=== PATIENT | female | born 1960 | race Caucasian/White ===

== ENCOUNTER 2016-11-13 20:46 | Emergency (ER) | payer OTHER ==
[~2016-11-13] VITALS: Ht 154.9 cm; Wt 95.0 kg
[~2016-11-13 20:46] MED LIST: FLUT16SP24 NASAL; IBUP-1542 PO; LORA-441 PO; LORA10TA3 PO; OMEP20CA9 PO; PATA BOTH EYES
[2016-11-13 20:48] VITALS: Ht 154.9 cm; Wt 95.0 kg
--- NOTE | 2016-11-13 21:45 | ERD ---
ER Documentation Chief Complaint Date/Time DATE: 11/13/16 TIME: 21:38 Chief Complaint PAINS SURROUNDING THE RIGHT EYE AND AND REDNESS 3 DAYS HPI 56-year-old female presents here in emergency department for complaints of pain surrounding the right eye and redness for the last 3 days. Patient described the pain as throbbing pain, 6/10 scale, is worse upon touching the area. Patient denies any eye discharge. Patient denies any pain inside her eyes. Patient denies any redness and eye. Patient denies any trauma in the eye. ROS All systems reviewed and are negative except as per history of present illness. Medications Home Meds Active Scripts Acetaminophen* (Tylophen*) 500 Mg Capsule, 1 CAP PO Q6H Y for PAIN AND OR ELEVATED TEMP, #20 CAP Prov:ROJAS CALDERON FORM TAMPING MACHINE OPERATOR 11/13/16 Clindamycin Hcl* (Clindamycin Hcl*) 300 Mg Capsule, 300 MG PO TID for 10 Days, CAP Prov:ROJAS CALDERON NP 11/13/16 Ibuprofen* (Motrin*) 600 Mg Tab, 600 MG PO Q6H Y for PAIN AND OR ELEVATED TEMP, #30 TAB Prov:JAXSON RECINOSC 11/04/16 Ibuprofen* (Motrin*) 600 Mg Tab, 600 MG PO Q8 for 10 Days, #30 TAB 0 Refills Prov:JOSE ALBERTO CANSECO PA-C 06/30/16 Loratadine* (Loratadine*) 10 Mg Tablet, 10 MG PO DAILY, #14 TAB Prov:TEMITOPE PACHECO DO 06/25/16 Olopatadine* (Patanol* Ophth) 0.1% - 5 Ml Drops, 1 DROP BOTH EYES BID, #1 EA Prov:TEMITOPE PACHECO DO 06/25/16 Omeprazole* (Prilosec*) 20 Mg Capsule.dr, 20 MG PO DAILY for 30 Days, CAP Prov:VICENTE HOLLIS MD 03/26/16 Lorazepam* (Ativan*) 0.5 Mg Tablet, 0.5 MG PO Q8H Y for ANXIETY, #10 TAB Prov:DECLAN ORONA DO 10/31/15 Fluticasone Propionate* (Flonase* Nasal) 50 Mcg/[place] - 16 Gm [place].susp, 1 SPRAY NASAL DAILY, #1 BOTTLE Prov:NGUYỄN HO 06/13/15 Loratadine* (Loratadine*) 10 Mg Tablet, 10 MG PO DAILY for 30 Days, TAB Prov:NGUYỄN HO 06/13/15 Allergies Allergies: Coded Allergies: No Known Allergy (Unverified , 11/04/16) PMhx/Soc History of Surgery: No Anesthesia Reaction: No Hx Neurological Disorder: No Hx Respiratory Disorders: No Hx Cardiac Disorders: Yes (HTN ) Hx Psychiatric Problems: No Hx Miscellaneous Medical Probl: Yes (iddm) Hx Alcohol Use: No Hx Substance Use: No Hx Tobacco Use: No Smoking Status: Never smoker FmHx Family History: No coronary disease, No diabetes, No other Physical Exam Vitals Vital Signs Date Time Temp Pulse Resp B/P Pulse Ox O2 Delivery O2 Flow Rate FiO2 11/13/16 20:48 98.5 78 18 138/73 100 Physical Exam GENERAL: The patient is well developed and appropriate for usual state of health, in no apparent distress. HEENT: Atraumatic. Eyes are PERRL EOM intact. Tenderness on palpation just below the right eye periorbital area. Ears: Normal tympanic membrane, no erythema or bulging. No ear canal swelling. No ear discharge. Nose: normal nasal turbinates, no erythema or swelling. Normal nasal discharge. Throat: oropharynx clear. No tonsillar swelling or tonsillar exudates. No lymphadenopathy. CHEST: Clear to auscultation bilaterally. There are no rales, wheezes or rhonchi. HEART: Regular rate and rhythm. No murmurs, clicks, rubs or gallops. No S3 or S4. ABDOMEN: Soft, nontender and nondistended. Good bowel sounds. No rebound or guarding. No gross peritonitis. No gross organomegaly or masses. No Mccann sign or McBurney point tenderness. BACK: No midline or flank tenderness. EXTREMITIES: Equal pulses bilaterally. There is no peripheral clubbing, cyanosis or edema. No focal swelling or erythema. Full range of motion. Grossly neurovascularly intact. NEURO: Alert and oriented. Cranial nerves 2-12 intact. Motor strength in all 4 extremities with 5/5 strength. Sensation grossly intact. Normal speech and gait. SKIN: There is no apparent rash or petechia. The skin is warm and dry. HEMATOLOGIC AND LYMPHATIC: There is no evidence of excessive bruising or lymphedema. No gross cervical, axillary, or inguinal lymphadenopathy. Result Diagram: 11/13/16214711/13/162147 Results 24 hrs Laboratory Tests Test 11/13/16 21:48 Alanine Aminotransferase (ALT/SGPT) 21IU/L Albumin 4.4g/dl Albumin/Globulin Ratio 1.25 Alkaline Phosphatase 78IU/L Anion Gap 18 Aspartate Amino Transf (AST/SGOT) 30IU/L Basophils # 0.010^3/ul Basophils % 0.5% Blood Morphology Comment Blood Urea Nitrogen 10mg/dl Calcium Level 9.3mg/dl Carbon Dioxide Level 25mmol/L Chloride Level 103mmol/L Creatinine 0.72mg/dl Direct Bilirubin 0.00mg/dl Eosinophils # 0.110^3/ul Eosinophils % 2.0% Globulin 3.50g/dl Glucose Level 126mg/dl Hematocrit 33.5% Hemoglobin 10.6g/dl Indirect Bilirubin 0.1mg/dl Lymphocytes # 2.210^3/ul Lymphocytes % 31.6% Mean Corpuscular Hemoglobin 22.8pg Mean Corpuscular Hemoglobin Concent 31.7g/dl Mean Corpuscular Volume 72.0fl Mean Platelet Volume 8.2fl Monocytes # 0.610^3/ul Monocytes % 8.4% Neutrophils # 4.010^3/ul Neutrophils % 57.5% Nucleated Red Blood Cells # 0.010^3/ul Nucleated Red Blood Cells % 0.0/100WBC Platelet Count 36848^3/UL Potassium Level 3.8mmol/L Red Blood Count 4.6510^6/ul Red Cell Distribution Width 19.2% Sodium Level 142mmol/L Total Bilirubin 0.1mg/dl Total Protein 7.9g/dl White Blood Count 6.910^3/ul Current Medications Medications (Trade) Dose Ordered Sig/Darrick Route PRN Reason Start Time Stop Time Status Last Admin Dose Admin Clindamycin HCl/ Dextrose (Cleocin 600 Mg/ D5W (Pmx)) 50 ml @ 50 mls/hr ONCE IVPB 11/13/16 23:00 11/13/16 23:59 Clindamycin was given here in emergency department for treatment. PROCEDURE: CT orbits with contrast. CLINICAL INDICATION: Right periorbital pain and swelling TECHNIQUE: CT scan of the orbits region was performed on a multidetector scanner. Contiguous axial images were obtained following the uncomplicated intravenous administration of 100 cc of Visipaque 320. No complications occurred. The exam CTDlvol = 53 mGy and DLP = 776 mGy-cm. COMPARISON: None available. FINDINGS: Subcutaneous soft tissues are unremarkable. There are no fractures or erosions. There are no soft tissue masses or abnormal enhancement to suggest a phlegmon or abscess. The orbits are unremarkable. The globes and intra orbital contents are intact. There is no infiltration or mass within the intraorbital fat are retroconal space. Extraocular muscles and optic nerve sheath complex are unremarkable. Superior opthalmic veins are normal in caliber. The de souza of the orbits are intact. The paranasal sinuses are clear without mucosal thickening or air-fluid level. The parotid and partially visualized submandibular glands unremarkable. The nasal and oropharynx are unremarkable. Bones are unremarkable. IMPRESSION: 1. Negative examination. RPTAT: HMVK .Victoriano Griffiths MD, MD Date Time Electronically viewed and signed by .Victoriano Griffiths MD, on 11/13/2016 22:55 .K/ CC: ROJAS CALDERON FORM TAMPING MACHINE OPERATOR Procedures/MDM Medical decision making: Patient's symptoms most likely consistent with periorbital cellulitis, patient was given first dose of clindamycin here in emergency department, was sent home with clindamycin. Patient was advised to return in 24 reevaluation of symptoms. At this time, no symptoms of sepsis, patient does not have any fever, no leukocytosis no bandemia patient does not have any symptoms of orbital cellulitis. CT scan of the orbits does not show any indication of any abscesses or any orbital cellulitis. Prescription was given for clindamycin, Tylenol for pain, it is advised to stop metformin for 48 hours since she was given IV contrast here in emergency department. Patient was advised to return in 24 hours for reevaluation of symptoms. Departure Diagnosis: Primary Impression: Periorbital cellulitis of right eye Condition: Stable Patient Instructions: Maddie-Orbital Cellulitis Additional Instructions: Prescription was given for clindamycin, Tylenol for pain, it is advised to stop metformin for 48 hours since she was given IV contrast here in emergency department. Patient was advised to return in 24 hours for reevaluation of symptoms. ROJAS CALDERON NP Nov 13, 2016 21:45
[2016-11-13] MEDS ORDERED: SOD CHLORIDE 0.9% 100 ML ONE (21:57)
[2016-11-13] MEDS ORDERED: IODIXANOL LOCM 100 ML BTL ONE (21:57)
[2016-11-13 22:27] LABS: ALBUMIN 4.4 g/dl (3.3-4.9)
[2016-11-13 22:28] LABS: POTASSIUM 3.8 mmol/L (3.5-5.1)
[2016-11-13 22:30] LABS: BASOPHILS % 0.5 % (0.0-2.0); BILIRUBIN,INDIRECT 0.1 mg/dl (0-1.1); BILIRUBIN,TOTAL 0.1 mg/dl (0.2-1.3); CREATININE 0.72 mg/dl (0.44-1.00); EOSINOPHILS # 0.1 10^3/ul (0.0-0.5); HEMATOCRIT 33.5 % (37.0-47.0); HEMOGLOBIN 10.6 g/dl (12.0-16.0); LYMPHOCYTES # 2.2 10^3/ul (0.8-2.9); LYMPHOCYTES % 31.6 % (15.0-51.0); MEAN CORPUSCULAR HEMOGLOBIN 22.8 pg (29.0-33.0); MEAN CORPUSCULAR HGB CONC 31.7 g/dl (32.0-37.0); MEAN PLATELET VOLUME 8.2 fl (7.4-10.4); MONOCYTE # 0.6 10^3/ul (0.3-0.9); MONOCYTES % 8.4 % (0.0-11.0); NEUTROPHILS % 57.5 % (39.0-77.0); PLATELET COUNT 218 10^3/UL (140-440); RED BLOOD COUNT 4.65 10^6/ul (4.20-5.40); RED CELL DISTRIBUTION WIDTH 19.2 % (11.5-14.5); UNCORRECTED WBC 6.9 10^3/ul (4.8-10.8); WHITE BLOOD COUNT 6.9 10^3/ul (4.8-10.8)
[2016-11-13 22:31] LABS: ALBUMIN/GLOBULIN RATIO 1.25; CALCIUM 9.3 mg/dl (8.4-10.2); TOTAL PROTEIN 7.9 g/dl (6.1-8.1)
[2016-11-13 22:32] LABS: CONDITION 1; LH ANALYZER COMMENTS 1
--- NOTE | 2016-11-13 22:56 | RADRPT ---
PROCEDURE: CT orbits with contrast. CLINICAL INDICATION: Right periorbital pain and swelling TECHNIQUE: CT scan of the orbits region was performed on a multidetector scanner. Contiguous axia l images were obtained following the uncomplicated intravenous administration of 100 cc of Visipaque 320. No complications occurred. The exam CTDlvol = 53 mGy and DLP = 776 mGy-cm. COMPARISON: None available. FINDINGS: Subcutaneous soft tissues are unremarkable. There are no fractures or erosions. There are no soft tissue masses or abnormal enhancement to suggest a phlegmon or abscess. The orbits are unremarkable . The globes and intra orbital contents are intact. There is no infiltration or mass within the in traorbital fat are retroconal space. Extraocular muscles and optic nerve sheath complex are unremar kable. Superior opthalmic veins are normal in caliber. The de souza of the orbits are intact. The pa ranasal sinuses are clear without mucosal thickening or air-fluid level. The parotid and partially visualized submandibular glands unremarkable. The nasal and oropharynx are unremarkable. Bones are unremarkable. IMPRESSION: 1. Negative examination. RPTAT: HMVK .Victoriano Griffiths MD, MD Date Time Electronically viewed and signed by .Victoriano Griffiths MD, on 11/13/2016 22:55 .K/
[2016-11-13] MEDS ORDERED: CLINDAMYCIN 600 MG/D5W (PMX) 50 ML IVPB SCH (23:00)
[2016-11-13] MEDS ORDERED: CLIN-73 PO (23:02)
[2016-11-13] MEDS ORDERED: ACET500C5 PO (23:02)
[2016-11-14 00:07] VITALS: BP 132/75; PULSE 80; RESP 16; TEMP 98.6
[2016-11-14] MEDS ORDERED: CLIN-73 PO (15:50)
== END 2016-11-14 00:08 | disposition home or self-care (01) ==
LOC: FTE 20:46
DX: H05.011 Cellulitis of right orbit (principal); I10 Essential (primary) hypertension; E11.9 Type 2 diabetes mellitus without complications
CPT/HCPCS: 36415; 70480; 80053; 85025; 96374; Q9967; Z7502; Z7610

== ENCOUNTER 2016-11-14 13:49 | Emergency (ER) | payer OTHER ==
[~2016-11-14] VITALS: Wt 95.5 kg
[~2016-11-14 13:49] MED LIST changes: +ACET500C5 PO; +CLIN-73 PO
--- NOTE | 2016-11-14 15:39 | ERD ---
ER Documentation Chief Complaint Date/Time DATE: 11/14/16 TIME: 15:38 Chief Complaint PT HERE FOR RECHECK OF RIGHT EYE REDNESS/PAIN HPI 56-year-old female with history of diabetes returns to the emergency department for a wound check. Patient was seen 48 hours ago and evaluated and was diagnosed with periorbital cellulitis. At that time labs as well as CT was performed to evaluate the orbits and exams were unremarkable. Patient was presumably prescribed a 10 day course of clindamycin antibiotic as well as Tylenol for pain although patient states she did not receive the prescription for the antibiotic. Patient does however state that her symptoms have improved. Today patient states she still is experiencing tenderness surrounding her right eye and rates her throbbing intermittent pain as a 7 out of 10 which is exacerbated by touch. She denies any vision problems or blurriness today. He denies any nausea, vomiting but does admit to mild cough. Patient has experienced some with the use of Tylenol. Patient states she followed directions to not continue her Metformin or insulin as she was given IV contrast. ROS All systems reviewed and are negative except as per history of present illness. Medications Home Meds Active Scripts Clindamycin Hcl* (Clindamycin Hcl*) 300 Mg Capsule, 300 MG PO TID for 10 Days, CAP Prov:TAVARES SPIVEY PA-C 11/14/16 Acetaminophen* (Tylophen*) 500 Mg Capsule, 1 CAP PO Q6H Y for PAIN AND OR ELEVATED TEMP, #20 CAP Prov:ROJAS CALDERON BUSINESS ADMINISTRATION PROFESSOR 11/13/16 Clindamycin Hcl* (Clindamycin Hcl*) 300 Mg Capsule, 300 MG PO TID for 10 Days, CAP Prov:ROJAS CALDERON BUSINESS ADMINISTRATION PROFESSOR 11/13/16 Ibuprofen* (Motrin*) 600 Mg Tab, 600 MG PO Q6H Y for PAIN AND OR ELEVATED TEMP, #30 TAB Prov:JAXSON RECINOS PA-C 11/04/16 Ibuprofen* (Motrin*) 600 Mg Tab, 600 MG PO Q8 for 10 Days, #30 TAB 0 Refills Prov:JOSE ALBERTO CANSECO PA-C 06/30/16 Loratadine* (Loratadine*) 10 Mg Tablet, 10 MG PO DAILY, #14 TAB Prov:TEMITOPE PACHECO DO 06/25/16 Olopatadine* (Patanol* Ophth) 0.1% - 5 Ml Drops, 1 DROP BOTH EYES BID, #1 EA Prov:TEMITOPE PACHECO DO 06/25/16 Omeprazole* (Prilosec*) 20 Mg Capsule.dr, 20 MG PO DAILY for 30 Days, CAP Prov:VICENTE HOLLIS MD 03/26/16 Lorazepam* (Ativan*) 0.5 Mg Tablet, 0.5 MG PO Q8H Y for ANXIETY, #10 TAB Prov:DECLAN ORONALeonor DO 10/31/15 Fluticasone Propionate* (Flonase* Nasal) 50 Mcg/[place] - 16 Gm [place].susp, 1 SPRAY NASAL DAILY, #1 BOTTLE Prov:[place],NGUYỄN C 06/13/15 Loratadine* (Loratadine*) 10 Mg Tablet, 10 MG PO DAILY for 30 Days, TAB Prov:[place],NGUYỄN C 06/13/15 Allergies Allergies: Coded Allergies: No Known Allergy (Unverified , 11/04/16) PMhx/Soc History of Surgery: No Anesthesia Reaction: No Hx Neurological Disorder: No Hx Respiratory Disorders: No Hx Cardiac Disorders: Yes (HTN ) Hx Psychiatric Problems: No Hx Miscellaneous Medical Probl: Yes (iddm) Hx Alcohol Use: No Hx Substance Use: No Hx Tobacco Use: No Physical Exam Vitals Vital Signs Date Time Temp Pulse Resp B/P Pulse Ox O2 Delivery O2 Flow Rate FiO2 11/14/16 14:06 97.3 81 17 119/68 98 Physical Exam Const: Well-developed, well-nourished, nontoxic appearing, in no acute distress Head: Atraumatic Eyes: Normal Conjunctiva, no orbital erythema, or injection. Mild erythema and swelling surrounding the right without any evidence of abscess formation. ENT: PERRLA, EOMs intact normal External Ears, Nose and Mouth. Neck: Full range of motion..~ No meningismus. Resp: Clear to auscultation bilaterally, no wheezes, rhonchi, rales Cardio: Regular rate and rhythm, no murmurs Abd: Soft, non tender, non distended. Normal bowel sounds Skin: No petechiae or rashes Back: No midline or flank tenderness Ext: No cyanosis, or edema Neur: Awake and alert, cranial nerves II through X intact Psych: Normal Mood and Affect Procedures/MDM This is a 56-year-old female who returns for a wound check for a recent diagnosis of periorbital right-sided cellulitis. Patient states since being seen 2 days ago her symptoms have improved. Patient denies any headache, fever , nausea, vomiting, or visual disturbances. Patient has been taking Tylenol for pain with adequate relief. Patient however notes that she did not receive her prescription for clindamycin antibiotic. At this time I have low suspicion for orbital cellulitis or bacterial infection , abscess, or sepsis. I will supply the patient with another copy of her antibiotic treatment regimen of clindamycin 3 times a day for 10 days. Patient to continue Tylenol for pain. Patient able to resume insulin and metformin therapy beginning tomorrow. Based on patient's history of present illness and physical examination the decision was made to discharge. The patient was re-evaluated after ED treatment and stabilizing measures, and symptoms have improved. There is no evidence of life threatening injuries or illnesses at this time. On re-examination, patient resting in no distress, stable vital signs, reports feeling better and safe for discharge with outpatient follow up with PMD in 1-2 days. Patient given return precautions. TAVARES SPIVEY PA-C Nov 14, 2016 15:39
[2016-11-14] MEDS ORDERED: CLIN-73 PO (15:50)
== END 2016-11-14 19:00 | disposition home or self-care (01) ==
LOC: E/R 13:49
DX: Z48.00 Encounter for change or removal of nonsurgical wound dressing (principal); I10 Essential (primary) hypertension; E11.9 Type 2 diabetes mellitus without complications
CPT/HCPCS: Z7502; Z7610; 99283

== ENCOUNTER 2016-12-19 23:37 | Emergency (ER) | payer OTHER ==
[~2016-12-19] VITALS: Ht 154.9 cm; Wt 94.5 kg
[~2016-12-19 23:37] MED LIST changes: +OLOP5DRO12 BOTH EYES; -PATA BOTH EYES
[2016-12-20 00:27] VITALS: Ht 154.9 cm; Wt 94.5 kg
[2016-12-20] MEDS ORDERED: ONDANSETRON 4 MG INJ IV STA (02:44)
[2016-12-20] MEDS ORDERED: morphine 4 MG/ML VIAL IV STA (02:44)
[2016-12-20] MEDS ORDERED: SOD CHLORIDE 0.9% 1,000 ML IV STA (02:44)
[2016-12-20] MEDS ORDERED: LIDOCAINE/MYLANTA 40 ML BTL PO STA (02:44)
[2016-12-20] MEDS ORDERED: FAMOTIDINE 20 MG INJ IV STA (02:44)
[2016-12-20 03:13] LABS: BASOPHILS % 0.7 % (0.0-2.0); EOSINOPHILS # 0.1 10^3/ul (0.0-0.5); HEMATOCRIT 34.5 % (37.0-47.0); HEMOGLOBIN 11.1 g/dl (12.0-16.0); LYMPHOCYTES % 30.8 % (15.0-51.0); MEAN CORPUSCULAR HEMOGLOBIN 22.9 pg (29.0-33.0); MEAN CORPUSCULAR HGB CONC 32.2 g/dl (32.0-37.0); MEAN CORPUSCULAR VOLUME 71.1 fl (82.0-101.0); MONOCYTE # 0.5 10^3/ul (0.3-0.9); MONOCYTES % 7.2 % (0.0-11.0); NEUTROPHIL # 3.8 10^3/ul (1.6-7.5); NEUTROPHILS % 59.3 % (39.0-77.0); PLATELET COUNT 286 10^3/UL (140-440); RED BLOOD COUNT 4.85 10^6/ul (4.20-5.40); RED CELL DISTRIBUTION WIDTH 19.1 % (11.5-14.5); UNCORRECTED WBC 6.4 10^3/ul (4.8-10.8); WHITE BLOOD COUNT 6.4 10^3/ul (4.8-10.8)
[2016-12-20 03:22] LABS: ADD UMIC NO; URINE BILIRUBIN (Dip) NEGATIVE (NEGATIVE); URINE BLOOD (Dip) NEGATIVE (NEGATIVE); URINE COLOR LT. YELLOW (YELLOW); URINE GLUCOSE (Dip) NEGATIVE (NEGATIVE); URINE KETONES (Dip) NEGATIVE (NEGATIVE); URINE LEUKOCYTE ESTERASE (Dip) NEGATIVE (NEGATIVE); URINE NITRITE (Dip) NEGATIVE (NEGATIVE); URINE TOTAL PROTEIN (Dip) NEGATIVE (NEGATIVE); URINE UROBILINOGEN (Dip) 0.2 E.U./dL (0.1-1.0)
[2016-12-20 03:23] LABS: ALBUMIN 4.3 g/dl (3.3-4.9); POTASSIUM 3.9 mmol/L (3.5-5.1)
[2016-12-20 03:25] LABS: BILIRUBIN,INDIRECT 0.2 mg/dl (0-1.1); BILIRUBIN,TOTAL 0.2 mg/dl (0.2-1.3); CREATININE 0.66 mg/dl (0.44-1.00)
[2016-12-20 03:26] LABS: ALBUMIN/GLOBULIN RATIO 1.26; TOTAL PROTEIN 7.7 g/dl (6.1-8.1)
[2016-12-20 03:47] LABS: CONDITION 1; LH ANALYZER COMMENTS 1
--- NOTE | 2016-12-20 03:52 | ERD ---
ER Documentation Chief Complaint Date/Time DATE: 12/20/16 TIME: 03:51 Chief Complaint epigastric pain, left arm numbness, chills started tonight. HPI This is a 56 for epigastric abdominal pain that was burning sensation that started today. Pain is mild to moderate intensity. Mild nausea. No vomiting. Basis of an underlying stress lately. Patient also had tingling of her left arm right arm and her face. Facial numbness was noted in the perioral region. No suicidal homicidal ideation. No other current complaints. Normal bowel and bladder habits. ROS All systems reviewed and are negative except as per history of present illness. Medications Home Meds Active Scripts Clindamycin Hcl* (Clindamycin Hcl*) 300 Mg Capsule, 300 MG PO TID for 10 Days, CAP Prov:TAVARES SPIVEY PA-C 11/14/16 Acetaminophen* (Tylophen*) 500 Mg Capsule, 1 CAP PO Q6H Y for PAIN AND OR ELEVATED TEMP, #20 CAP Prov:ROJAS CALDERON NP 11/13/16 Clindamycin Hcl* (Clindamycin Hcl*) 300 Mg Capsule, 300 MG PO TID for 10 Days, CAP Prov:ROJAS CALDERON NP 11/13/16 Ibuprofen* (Motrin*) 600 Mg Tab, 600 MG PO Q6H Y for PAIN AND OR ELEVATED TEMP, #30 TAB Prov:JAXSON RECINOS PA-C 11/04/16 Ibuprofen* (Motrin*) 600 Mg Tab, 600 MG PO Q8 for 10 Days, #30 TAB 0 Refills Prov:JOSE ALBERTO CANSECO PA-C 06/30/16 Loratadine* (Loratadine*) 10 Mg Tablet, 10 MG PO DAILY, #14 TAB Prov:TEMITOPE PACHECO DO 06/25/16 Olopatadine* (Patanol* Ophth) 0.1% - 5 Ml Drops, 1 DROP BOTH EYES BID, #1 EA Prov:TEMITOPE PACHECO DO 06/25/16 Omeprazole* (Prilosec*) 20 Mg Capsule.dr, 20 MG PO DAILY for 30 Days, CAP Prov:VICENTE HOLLIS MD 03/26/16 Lorazepam* (Ativan*) 0.5 Mg Tablet, 0.5 MG PO Q8H Y for ANXIETY, #10 TAB Prov:DECLAN ORONA DO 10/31/15 Fluticasone Propionate* (Flonase* Nasal) 50 Mcg/[place] - 16 Gm [place].susp, 1 SPRAY NASAL DAILY, #1 BOTTLE Prov:NGUYỄN HO 06/13/15 Loratadine* (Loratadine*) 10 Mg Tablet, 10 MG PO DAILY for 30 Days, TAB Prov:NGUYỄN HO C 06/13/15 Allergies Allergies: Coded Allergies: No Known Allergy (Unverified , 11/04/16) PMhx/Soc History of Surgery: No Anesthesia Reaction: No Hx Neurological Disorder: No Hx Respiratory Disorders: No Hx Cardiac Disorders: Yes (HTN ) Hx Psychiatric Problems: No Hx Miscellaneous Medical Probl: Yes (iddm) Hx Alcohol Use: No Hx Substance Use: No Hx Tobacco Use: No Smoking Status: Never smoker Physical Exam Vitals Vital Signs Date Time Temp Pulse Resp B/P Pulse Ox O2 Delivery O2 Flow Rate FiO2 12/20/16 03:28 72 20 112/67 97 Room Air 12/20/16 00:27 97.2 81 20 128/62 99 Physical Exam Const: [] Head: Atraumatic Eyes: Normal Conjunctiva ENT: Normal External Ears, Nose and Mouth. Neck: Full range of motion..~ No meningismus. Resp: Clear to auscultation bilaterally Cardio: Regular rate and rhythm, no murmurs Abd: Soft, non tender, non distended. Normal bowel sounds Skin: No petechiae or rashes Back: No midline or flank tenderness Ext: No cyanosis, or edema Neur: Awake and alert Psych: Normal Mood and Affect Result Diagram: 12/20/16 0255 12/20/16 0255 Results 24 hrs Laboratory Tests Test 12/20/16 02:55 Alanine Aminotransferase (ALT/SGPT) 20IU/L Albumin 4.3g/dl Albumin/Globulin Ratio 1.26 Alkaline Phosphatase 94IU/L Anion Gap 19 Aspartate Amino Transf (AST/SGOT) 27IU/L Basophils # 0.010^3/ul Basophils % 0.7% Blood Morphology Comment Blood Urea Nitrogen 12mg/dl Calcium Level 10.0mg/dl Carbon Dioxide Level 26mmol/L Chloride Level 102mmol/L Creatinine 0.66mg/dl Direct Bilirubin 0.00mg/dl Eosinophils # 0.110^3/ul Eosinophils % 2.0% Globulin 3.40g/dl Glucose Level 130mg/dl Hematocrit 34.5% Hemoglobin 11.1g/dl Indirect Bilirubin 0.2mg/dl Lipase 144U/L Lymphocytes # 2.010^3/ul Lymphocytes % 30.8% Mean Corpuscular Hemoglobin 22.9pg Mean Corpuscular Hemoglobin Concent 32.2g/dl Mean Corpuscular Volume 71.1fl Mean Platelet Volume 8.0fl Monocytes # 0.510^3/ul Monocytes % 7.2% Neutrophils # 3.810^3/ul Neutrophils % 59.3% Nucleated Red Blood Cells # 0.010^3/ul Nucleated Red Blood Cells % 0.0/100WBC Platelet Count 84521^3/UL Potassium Level 3.9mmol/L Red Blood Count 4.8510^6/ul Red Cell Distribution Width 19.1% Sodium Level 143mmol/L Total Bilirubin 0.2mg/dl Total Protein 7.7g/dl Urine Bilirubin NEGATIVE Urine Clarity CLEAR Urine Color LT. YELLOW Urine Glucose NEGATIVE% Urine Hemoglobin NEGATIVE Urine Ketones NEGATIVE Urine Leukocyte Esterase NEGATIVE Urine Nitrite NEGATIVE Urine Specific [place] 1.010 Urine Total Protein NEGATIVE Urine Urobilinogen 0.2 E.U./dL Urine pH 5.5 White Blood Count 6.410^3/ul Current Medications Medications (Trade) Dose Ordered Sig/Darrick Route PRN Reason Start Time Stop Time Status Last Admin Dose Admin Sodium Chloride (NS) 1,000 ml @ 1,000 mls/hr Q1H STAT IV 12/20/16 02:44 12/20/16 03:43 DC 12/20/16 03:09 Morphine Sulfate (morphine) 4 mg ONCE STAT IV 12/20/16 02:44 12/20/16 02:45 DC 12/20/16 03:09 Ondansetron HCl (Zofran Inj) 4 mg ONCE STAT IV 12/20/16 02:44 12/20/16 02:45 DC 12/20/16 03:09 Famotidine (Pepcid Iv) 20 mg ONCE STAT IV 12/20/16 02:44 12/20/16 02:45 DC 12/20/16 03:09 Miscellaneous Medication (Gi Cocktail (2)) 40 ml ONCE STAT PO 12/20/16 02:44 12/20/16 02:45 DC 12/20/16 03:09 Procedures/MDM Medical decision-making: This is very significant and likely a stress-induced gastritis. Sponge is clinically stable and feels much better. Be discharged home with Zantac Zofran. She is to follow-up in 8 hours for serial abdominal exams which he agrees. At this point is clinically stable for outpatient management tolerating p.o. pain free. No evidence of any cardiac issues. No psychiatric issues noted on repeat interview Departure Diagnosis: Primary Impression: Epigastric pain Condition: Stable MAULIK OTERO Dec 20, 2016 03:52
[2016-12-20] MEDS ORDERED: RANI150T9 PO (03:55)
[2016-12-20] MEDS ORDERED: SUCR1TAB56 PO (03:55)
[2016-12-20 04:11] VITALS: BP 119/66; PULSE 76; RESP 18; TEMP 98.6
== END 2016-12-20 04:12 | disposition home or self-care (01) ==
LOC: E/R 23:37
DX: R10.13 Epigastric pain (principal); I10 Essential (primary) hypertension
CPT/HCPCS: 36415; 80053; 81003; 83690; 85025; 96374; 96375; J2270; J2405; J7030; Z7502; Z7610

== ENCOUNTER 2017-06-07 04:26 | Emergency (ER) | payer OTHER ==
[~2017-06-07] VITALS: Ht 154.9 cm; Wt 97.7 kg
[~2017-06-07 04:26] MED LIST changes: +RANI150T9 PO; +SUCR1TAB56 PO
[2017-06-07 04:31] VITALS: Ht 154.9 cm; Wt 97.7 kg
[2017-06-07] MEDS ORDERED: morphine 10 MG INJ IM ONE (05:00)
--- NOTE | 2017-06-07 05:05 | ERD ---
ER Documentation Chief Complaint Date/Time DATE: 06/07/17 TIME: 05:04 Chief Complaint AMY MEDINA 100 from home, rt upper thigh pain radiating to rt knee,no trauma HPI This is a 56-year-old female was brought in from home with right buttock pain that radiates down the back of her leg. No trauma. He said it feels like muscle spasming. Denies any other current complaints. Pain is mild to moderate in intensity. ROS All systems reviewed and are negative except as per history of present illness. Medications Home Meds Active Scripts Ranitidine Hcl* (Zantac*) 150 Mg Tablet, 150 MG PO BID Y for EPIGASTRIC PAIN, # 30 TAB Prov:MAULIK OTERO 12/20/16 Sucralfate* (Carafate*) 1 Gm Tab, 1 GM PO QID, #60 TAB Prov:MAULIK OTERO. 12/20/16 Clindamycin Hcl* (Clindamycin Hcl*) 300 Mg Capsule, 300 MG PO TID for 10 Days, CAP Prov:TAVARES SPIVEY PA-C 11/14/16 Acetaminophen* (Tylophen*) 500 Mg Capsule, 1 CAP PO Q6H Y for PAIN AND OR ELEVATED TEMP, #20 CAP Prov:ROJAS CALDERON FOREIGN EXCHANGE POSITION CLERK 11/13/16 Clindamycin Hcl* (Clindamycin Hcl*) 300 Mg Capsule, 300 MG PO TID for 10 Days, CAP Prov:ROJAS CALDERON FOREIGN EXCHANGE POSITION CLERK 11/13/16 Ibuprofen* (Motrin*) 600 Mg Tab, 600 MG PO Q6H Y for PAIN AND OR ELEVATED TEMP, #30 TAB Prov:JAXSON RECINOS PA-C 11/04/16 Ibuprofen* (Motrin*) 600 Mg Tab, 600 MG PO Q8 for 10 Days, #30 TAB 0 Refills Prov:JOSE ALBERTO CANSECOC 06/30/16 Loratadine* (Loratadine*) 10 Mg Tablet, 10 MG PO DAILY, #14 TAB Prov:TEMITOPE PACHECO DO 06/25/16 Olopatadine* (Patanol* Ophth) 0.1% - 5 Ml Drops, 1 DROP BOTH EYES BID, #1 EA Prov:TEMITOPE PACHECO DO 06/25/16 Omeprazole* (Prilosec*) 20 Mg Capsule.dr, 20 MG PO DAILY for 30 Days, CAP Prov:VICENTE HOLLIS MD 03/26/16 Lorazepam* (Ativan*) 0.5 Mg Tablet, 0.5 MG PO Q8H Y for ANXIETY, #10 TAB Prov:DECLAN ORONA DO 10/31/15 Fluticasone Propionate* (Flonase* Nasal) 50 Mcg/[place] - 16 Gm [place].susp, 1 SPRAY NASAL DAILY, #1 BOTTLE Prov:GEORGIANGUYỄN C 06/13/15 Loratadine* (Loratadine*) 10 Mg Tablet, 10 MG PO DAILY for 30 Days, TAB Prov:[place],NGUYỄN C 06/13/15 Allergies Allergies: Coded Allergies: No Known Allergy (Unverified , 11/04/16) PMhx/Soc Medical and Surgical Hx: pt denies Surgical Hx History of Surgery: No Anesthesia Reaction: No Hx Neurological Disorder: No Hx Respiratory Disorders: No Hx Cardiac Disorders: Yes (HTN ) Hx Psychiatric Problems: No Hx Miscellaneous Medical Probl: Yes (iddm) Hx Alcohol Use: No Hx Substance Use: No Hx Tobacco Use: No Smoking Status: Never smoker Physical Exam Vitals Vital Signs Date Time Temp Pulse Resp B/P Pulse Ox O2 Delivery O2 Flow Rate FiO2 06/07/17 04:31 99.0 89 18 131/69 100 Physical Exam Const: [] Head: Atraumatic Eyes: Normal Conjunctiva ENT: Normal External Ears, Nose and Mouth. Neck: Full range of motion..~ No meningismus. Resp: Clear to auscultation bilaterally Cardio: Regular rate and rhythm, no murmurs Abd: Soft, non tender, non distended. Normal bowel sounds Skin: No petechiae or rashes Back: No midline or flank tenderness Ext: No cyanosis, or edema Neur: Awake and alert Psych: Normal Mood and Affect Results 24 hrs Current Medications Medications (Trade) Dose Ordered Sig/Darrick Route PRN Reason Start Time Stop Time Status Last Admin Dose Admin Morphine Sulfate (morphine) 4 mg ONCE ONCE IM 06/07/17 05:00 06/07/17 05:01 DC 06/07/17 04:41 Procedures/MDM Medical decision-m[age]-year-old female has evidence of sciatica. Patient' s musculoskeletal symptoms have stabilized while they have been evaluated in the department and are appropriate for outpatient work up. No evidence of cauda equina, cord compression, infiltrative, or infectious etiology. Departure Diagnosis: Primary Impression: Sciatica Laterality: right Qualified Code: M54.31 - Sciatica of right side Condition: Stable MAULIK OTERO Jun 07, 2017 05:04
--- NOTE | 2017-06-07 05:05 | RADRPT ---
PROCEDURE: ULTRASOUND RIGHT LOWER EXTREMITY VENOUS CLINICAL INDICATION: 56-year-old female with right lower extremity pain. TECHNIQUE: Multiple sonographic images of the right lower extremity deep venous system was obtaine d utilizing grayscale, color-flow, compressive sonography and doppler imaging with augmentation. Th e images were reviewed on a PACS workstation. COMPARISON: None. FINDINGS: There is normal compressibility and flow within the right common femoral, deep femoral, superficial femoral, popliteal, posterior tibial and peroneal veins. IMPRESSION: No sonographic evidence for right lower extremity deep venous thrombosis. .Ray Stroud MD, MD Date Time Electronically viewed and signed by .Ray Stroud MD, MD on 06/07/2017 05:05 .Maco/
[2017-06-07] MEDS ORDERED: TRAM50TA2 PO (05:06)
[2017-06-07 05:07] VITALS: BP 107/66; PULSE 71; RESP 16; TEMP 99
[2017-06-07] MEDS ORDERED: LORAZEPAM 2 MG INJ IM ONE ×2 (05:30)
== END 2017-06-07 05:51 | disposition home or self-care (01) ==
LOC: E/R 04:26
DX: M54.41 Lumbago with sciatica, right side (principal); I10 Essential (primary) hypertension; E11.9 Type 2 diabetes mellitus without complications
CPT/HCPCS: 93971; 96372; J2060; J2270; Z7502

== ENCOUNTER 2017-07-20 17:22 | Emergency (ER) | payer OTHER ==
[~2017-07-20] VITALS: Ht 165.1 cm; Wt 91.0 kg
[~2017-07-20 17:22] MED LIST changes: -ACET500C5 PO; -CLIN-73 PO; -FLUT16SP24 NASAL; -IBUP-1542 PO; -LORA-441 PO; -LORA10TA3 PO; -OMEP20CA9 PO; +TRAM50TA2 PO
[2017-07-20 17:29] VITALS: Ht 165.1 cm; Wt 91.0 kg
[2017-07-20] MEDS ORDERED: KETOROLAC 60 MG INJ IM STA (19:25)
--- NOTE | 2017-07-20 21:21 | RADRPT ---
PROCEDURE: Knee radiographs CLINICAL INDICATION: Knee pain. COMPARISON: None relevant listed. TECHNIQUE: AP, lateral, and oblique view of the right knee. FINDINGS: No acute fracture. No destructive bone lesion. Alignment is anatomic. Mild tricompartmental total marginal osteophytes with spurring of the tibial eminences. Small suprapatellar effusion, partially obscured by technique. Small quadriceps tendon enthesophyte at its patellar attachment. IMPRESSION: 1. No acute fracture or subluxation. 2. Small suprapatellar effusion. 3. Mild tricompartmental osteoarthrosis. RPTAT: [facility] Physician Ruiz Date Time Electronically viewed and signed by Physician Ruiz on 07/20/2017 21:20 LG/
[2017-07-20] MEDS ORDERED: ACET500C5 PO (21:38)
--- NOTE | 2017-07-20 21:43 | ERD ---
ER Documentation Chief Complaint Date/Time DATE: 07/20/17 TIME: 21:40 Chief Complaint RIGHT KNEE PAIN,DIFFICULTY WALKING X 3 DAYS HPI 56-year-old female patient with a past medical history of diabetes, hypertension , hyperlipidemia presents to the ED complaining of right knee pain that started yesterday. States that this has been going on intermittently for 1 year. Reports that he feels like needlelike pains and describes as sharp. Rates the pain a 7 out of 10. States that sitting down makes the pain better. Reports that walking and bearing weight worsens the pain. Denies any recent traveling. Denies any loss of sensation, loss of range of motion, fever, chills, nausea, vomiting, ROS All systems reviewed and are negative except as per history of present illness. Medications Home Meds Active Scripts Acetaminophen* (Tylophen*) 500 Mg Capsule, 1 CAP PO Q6H Y for PAIN AND OR ELEVATED TEMP, #20 CAP Prov:ALYSSA BYRNE PA-C 07/20/17 Tramadol HCl (Tramadol HCl) 50 Mg Tablet, 50 MG PO Q4 Y for PAIN, #20 TAB Prov:MAULIK OTERO 06/07/17 Ranitidine Hcl* (Zantac*) 150 Mg Tablet, 150 MG PO BID Y for EPIGASTRIC PAIN, # 30 TAB Prov:MAULIK OTERO 12/20/16 Sucralfate* (Carafate*) 1 Gm Tab, 1 GM PO QID, #60 TAB Prov:MAULIK OTERO 12/20/16 Olopatadine* (Patanol* Ophth) 0.1% - 5 Ml Drops, 1 DROP BOTH EYES BID, #1 EA Prov:TEMITOPE PACHECO DO 06/25/16 Allergies Allergies: Coded Allergies: No Known Allergy (Unverified , 11/04/16) PMhx/Soc Medical and Surgical Hx: pt denies Surgical Hx History of Surgery: No Anesthesia Reaction: No Hx Neurological Disorder: No Hx Respiratory Disorders: No Hx Cardiac Disorders: Yes (HTN, DYSLIPIDEMIA ) Hx Psychiatric Problems: No Hx Miscellaneous Medical Probl: Yes (iddm) Hx Alcohol Use: No Hx Substance Use: No Hx Tobacco Use: No Smoking Status: Never smoker Physical Exam Vitals Vital Signs Date Time Temp Pulse Resp B/P Pulse Ox O2 Delivery O2 Flow Rate FiO2 9/7/17 21:50 71 18 154/81 96 Room Air 07/20/17 17:29 98.7 89 18 169/91 98 Physical Exam Const: [id number], well-nourished. In no acute distress. Head: Atraumatic, normocephalic Eyes: Normal Conjunctiva without injection ENT: Normal external ear, nose and mouth. Neck: Full range of motion. No meningismus. Resp: Clear to auscultation bilaterally. No wheezing, rhonchi, rales, or crackles. No accessory muscle use. No retractions. Cardio: Regular rate and rhythm, no murmurs Skin: No petechiae or rashes Back: No midline tenderness. No CVA tenderness. Ext: No cyanosis, or edema. Cap refill less than 2 seconds. Distal pulses intact bilaterally. Palpation of the right patella. No erythema or warmth to touch. Limited range of motion due to pain. No deformities. Neur: Awake and alert. Normal gait and coordination. Muscle strength 5/5. Sensation intact bilaterally. Psych: Normal Mood and Affect Results 24 hrs Current Medications Medications (Trade) Dose Ordered Sig/Darrick Route PRN Reason Start Time Stop Time Status Last Admin Dose Admin Ketorolac Tromethamine (Toradol) 60 mg ONCE STAT IM 07/20/17 19:25 07/20/17 19:27 DC 07/20/17 19:29 Procedures/MDM 56-year-old female patient with a past medical history of diabetes, hypertension , hyperlipidemia presents to the ED complaining of right knee pain. Patient is afebrile and nontoxic-appearing. Patient has normal vital signs. A right knee x-ray was ordered to further evaluate patient. PROCEDURE: Knee radiographs CLINICAL INDICATION: Knee pain. COMPARISON: None relevant listed. TECHNIQUE: AP, lateral, and oblique view of the right knee. FINDINGS: No acute fracture. No destructive bone lesion. Alignment is anatomic. Mild tricompartmental total marginal osteophytes with spurring of the tibial eminences. Small suprapatellar effusion, partially obscured by technique. Small quadriceps tendon enthesophyte at its patellar attachment. IMPRESSION: 1. No acute fracture or subluxation. 2. Small suprapatellar effusion. 3. Mild tricompartmental osteoarthrosis. Patient is placed in a Waldo wrap of the right knee. Splint Assessment: Neurovascularly intact pre and post wrap placement with good fit. Patient has arthritis of her right knee. Patient's extremity symptoms have stabilized while they have been evaluated in the department and are appropriate for outpatient follow up. No evidence of fractures, dislocations, compartment syndrome, neurologic injury, vascular injury, open joint, open fracture, tendon laceration, septic arthritis, osteomyelitis, DVT, foreign body, or other emergent conditions. Discharge medications: Tylenol Follow up with primary care physician in 1-2 days. Instructed patient to return to the ED sooner for any worsening symptoms. Patient's questions were answered. Patient understood and agreed with discharge plan. Patient discharged stable. Departure Diagnosis: Primary Impression: Knee pain Chronicity: acute Laterality: right Qualified Code: M25.561 - Acute pain of right knee Condition: Stable Patient Instructions: What Is Arthritis?, Reducing Knee Pain and Swelling Referrals: [facility] YOU HAVE RECEIVED A MEDICAL SCREENING EXAM AND THE RESULTS INDICATE THAT YOU DO NOT HAVE A CONDITION THAT REQUIRES URGENT TREATMENT IN THE EMERGENCY DEPARTMENT. FURTHER EVALUATION AND TREATMENT OF YOUR CONDITION CAN WAIT UNTIL YOU ARE SEEN IN YOUR DOCTORS OFFICE WITHIN THE NEXT 1-2 DAYS. IT IS YOUR RESPONSIBILITY TO MAKE AN APPOINTMENT FOR [facility]. IF YOU HAVE A PRIMARY DOCTOR --you should call your primary doctor and schedule an appointment IF YOU DO NOT HAVE A PRIMARY DOCTOR YOU CAN CALL OUR PHYSICIAN REFERRAL HOTLINE AT IF YOU CAN NOT AFFORD TO SEE A PHYSICIAN YOU CAN CHOSE FROM THE FOLLOWING [facility] [address] [facility] [address] [facility] [address] [facility] [address] [facility] [address] [facility]. [facility]. [address] [facility]. [facility] YOU HAVE RECEIVED A MEDICAL SCREENING EXAM AND THE RESULTS INDICATE THAT YOU DO NOT HAVE A CONDITION THAT REQUIRES URGENT TREATMENT IN THE EMERGENCY DEPARTMENT. FURTHER EVALUATION AND TREATMENT OF YOUR CONDITION CAN WAIT UNTIL YOU ARE SEEN IN YOUR DOCTORS OFFICE WITHIN THE NEXT 1-2 DAYS. IT IS YOUR RESPONSIBILITY TO MAKE AN APPOINTMENT FOR [facility] CARE. IF YOU HAVE A PRIMARY DOCTOR --you should call your primary doctor and schedule and appointment IF YOU DO NOT HAVE A PRIMARY DOCTOR YOU CAN CALL OUR PHYSICIAN REFERRAL HOTLINE AT . IF YOU CAN NOT AFFORD TO SEE A PHYSICIAN YOU CAN CHOSE FROM THE FOLLOWING [facility] INSTITUTIONS: [facility] [address] [place] [address] [facility] [address] [place], [place] [id number] [place] [address] [address] [place] [address] [facility] URGENT C[facility]/SPECIALTIES Additional Instructions: Llame al doctor MAANA y elmira ana LENO PARA DENTRO DE 2-3 WYATT.Dgale a la secretaria que nosotros le instruimos hacer esta leno.Avise o llame si mcclendon condicin se empeora antes de la leno. Regresa aqui si peor o no mejor. ALYSSA BYRNE PA-C Jul 20, 2017 21:43
[2017-07-20 21:50] VITALS: BP 154/81; PULSE 71; RESP 18
== END 2017-07-20 21:52 | disposition home or self-care (01) ==
LOC: FTE 17:22
DX: M25.561 Pain in right knee (principal); E11.9 Type 2 diabetes mellitus without complications; I10 Essential (primary) hypertension
CPT/HCPCS: 73562; 96372; J1885; Z7502

== ENCOUNTER 2017-09-28 19:26 | Emergency (ER) | payer OTHER ==
[~2017-09-28] VITALS: Ht 157.5 cm; Wt 92.7 kg
[~2017-09-28 19:26] MED LIST changes: +ACET500C5 PO
[2017-09-28 19:34] VITALS: Ht 157.5 cm; Wt 92.7 kg
--- NOTE | 2017-09-28 22:24 | ERD ---
ER Documentation Chief Complaint Chief Complaint Left low back pain HPI The patient is a 49-year-old female, presenting to the ER because of low back pain radiating down to her left lower extremity intermittently for the last 2 weeks, denies fecal/urinary incontinence, denies fever, chills, neck pain, chest pain or dyspnea, abdominal pain, vomiting, dysuria, diarrhea. She does not smoke or drink, denies any history of IV drug abuse Past medical history: Diabetes mellitus, dyslipidemia, gastritis Past medical history: None ROS All systems reviewed and are negative except as per history of present illness. Medications Home Meds Active Scripts Ibuprofen* (Motrin*) 600 Mg Tab, 600 MG PO Q6H Y for PAIN AND OR ELEVATED TEMP, #20 TAB Prov:DANY DAVIDSON MD 09/28/17 Acetaminophen* (Tylophen*) 500 Mg Capsule, 1 CAP PO Q6H Y for PAIN AND OR ELEVATED TEMP, #20 CAP Prov:ALYSSA BYRNE PA-C 07/20/17 Tramadol HCl (Tramadol HCl) 50 Mg Tablet, 50 MG PO Q4 Y for PAIN, #20 TAB Prov:MAULIK OTERO 06/07/17 Ranitidine Hcl* (Zantac*) 150 Mg Tablet, 150 MG PO BID Y for EPIGASTRIC PAIN, # 30 TAB Prov:MAULIK OTERO 12/20/16 Sucralfate* (Carafate*) 1 Gm Tab, 1 GM PO QID, #60 TAB Prov:MAULIK OTERO 12/20/16 Olopatadine* (Patanol* Ophth) 0.1% - 5 Ml Drops, 1 DROP BOTH EYES BID, #1 EA Prov:TEMITOPE PACHECO DO 06/25/16 Allergies Allergies: Coded Allergies: No Known Allergy (Unverified , 11/04/16) PMhx/Soc History of Surgery: No Anesthesia Reaction: No Hx Neurological Disorder: No Hx Respiratory Disorders: No Hx Cardiac Disorders: Yes (HTN, DYSLIPIDEMIA ) Hx Psychiatric Problems: No Hx Miscellaneous Medical Probl: Yes (iddm) Hx Alcohol Use: No Hx Substance Use: No Hx Tobacco Use: No Physical Exam Vitals Vital Signs Date Time Temp Pulse Resp B/P Pulse Ox O2 Delivery O2 Flow Rate FiO2 09/28/17 23:30 97.8 83 20 138/89 97 Room Air 09/28/17 19:34 99.3 97 18 151/65 98 Physical Exam Const: No acute distress. Head: Atraumatic. Eyes: Normal Conjunctiva. ENT: Normal External Ears, Nose and Mouth. Neck: Full range of motion. No meningismus. Resp: Clear to auscultation bilaterally. Cardio: Regular rate and rhythm. Abd: Soft, non distended, normal bowel sounds, non tender. Skin: No petechiae or rashes. Back: No midline or flank tenderness.Equivocal left leg straight raising test Ext: No cyanosis, or edema.No calf tenderness Neur: Awake and alert. No focal deficit Psych: Normal Mood and Affect. Results 24 hrs Current Medications Medications (Trade) Dose Ordered Sig/Darrick Route PRN Reason Start Time Stop Time Status Last Admin Dose Admin Ketorolac Tromethamine (Toradol) 60 mg ONCE STAT IM 09/28/17 22:47 09/28/17 22:48 DC 09/28/17 23:11 Procedures/MDM MEDICAL MAKING DECISION: The patient is a 57-year-old female, presenting with acute on chronic low back pain with left sciatica. She was treated with Toradol 60 mg IM for pain with good response. The differential diagnoses considered include but are not limited to caudal equina syndrome, spinal abscess, DJD, diskitis, lumbar radiculopathy. Departure Diagnosis: Primary Impression: Left-sided low back pain with sciatica Condition: Good Comments She was discharged with Motrin The patient's blood pressure was elevated (>120/80) but appears stable without evidence of hypertension emergency or urgency. The patient was counseled about the risks of hypertension and urged to pursue outpatient monitoring and therapy within a week with their primary care physician. I discussed the findings with the patient. I advised the patient to follow-up with the primary physician in about 1-2 days, sooner if needed and return if any concern. Disclaimer: Inadvertent spelling and grammatical errors are likely due to EHR/ dictation software use and do not reflect on the overall quality of patient care. Also, please note that the electronic time recorded on this note does not necessarily reflect the actual time of the patient encounter. DANY DAVIDSON MD Sep 28, 2017 22:24
[2017-09-28] MEDS ORDERED: KETOROLAC 60 MG INJ IM STA (22:47)
[2017-09-28] MEDS ORDERED: IBUP-1542 PO (22:48)
[2017-09-28 23:30] VITALS: BP 138/89; PULSE 83; RESP 20; TEMP 97.8
== END 2017-09-28 23:32 | disposition home or self-care (01) ==
LOC: E/R 19:26
DX: M54.42 Lumbago with sciatica, left side (principal); I10 Essential (primary) hypertension; E11.9 Type 2 diabetes mellitus without complications
CPT/HCPCS: 96372; J1885; Z7502

== ENCOUNTER 2017-12-01 01:32 | Emergency (ER) | END 2017-12-01 05:12 | disposition home or self-care (01) ==

== ENCOUNTER 2017-12-14 18:34 | Emergency (ER) | END 2017-12-15 00:13 | disposition home or self-care (01) ==

== ENCOUNTER 2018-01-20 18:45 | Emergency (ER) | END 2018-01-20 23:38 | disposition home or self-care (01) ==

== ENCOUNTER 2018-02-16 19:01 | Emergency (ER) | END 2018-02-16 19:47 | disposition home or self-care (01) ==

== ENCOUNTER 2018-02-19 19:58 | Emergency (ER) | END 2018-02-20 01:14 | disposition home or self-care (01) ==

== ENCOUNTER 2018-04-25 02:16 | Emergency (ER) | END 2018-04-25 07:26 | disposition home or self-care (01) ==

== ENCOUNTER 2018-05-21 00:10 | Emergency (ER) | END 2018-05-21 04:20 | disposition home or self-care (01) ==

== ENCOUNTER 2018-06-21 18:54 | Emergency (ER) | END 2018-06-21 22:44 | disposition home or self-care (01) ==

== ENCOUNTER 2018-08-17 12:39 | Emergency (ER) | END 2018-08-17 15:05 | disposition home or self-care (01) ==

== ENCOUNTER 2018-10-21 10:53 | Emergency (ER) | END 2018-10-21 12:23 | disposition home or self-care (01) ==

== ENCOUNTER 2019-01-08 23:08 | Emergency (ER) | payer OTHER ==
[~2019-01-08] VITALS: Wt 85.1 kg
[~2019-01-08 23:08] MED LIST changes: -ACET500C5 PO; +ASPI-817 PO; +GLIM4TAB PO; +HYDR-4011 PO; +IBUP-1542 PO; +IBUP800T48 PO; +INSU500V IM*; +MECL-77 PO; +MTF1000T PO; +NAPR-985 PO; +NEOM28.33 TP; +NPH,100V IM; +RANI150T35 PO; -RANI150T9 PO; +SIMV20TA2 PO; -SUCR1TAB56 PO
--- NOTE | 2019-01-09 01:43 | ERD ---
ER Documentation Chief Complaint Chief Complaint ST X'S 3 DAYS HPI 58-year-old female is here with sore throat for 3 days. She is been taking Motrin but is not helping. Unsure if she has had a fever. No cough. She is tolerating oral intake but has pain with swallowing. No nausea or vomiting. ROS All systems reviewed and are negative except as per history of present illness. Medications Home Meds Active Scripts Ibuprofen* (Motrin*) 600 Mg Tab, 600 MG PO Q6H PRN for PAIN AND OR ELEVATED TEMP, #30 TAB Prov:JAXSON RECINOS PA-C 10/21/18 Naproxen* (Naprosyn*) 500 Mg Tablet, 500 MG PO BID PRN for PAIN AND/OR INF LAMMATION, #30 TAB Prov:AWAIS GRANT PA-C 08/17/18 Ibuprofen* (Motrin*) 800 Mg Tab, 800 MG PO Q6H PRN for PAIN AND OR ELEVATED TEMP, #30 TAB Prov:VICENTE HOLLIS MD 06/21/18 Hydrocodone/Acetaminophen (Audubon 5-325 Tablet) 1 Each Tablet, 1 TAB PO Q6H PRN for PAIN, #7 TAB Prov:VICENTE HOLLIS MD 06/21/18 Meclizine Hcl* (Meclizine Hcl*) 25 Mg Tablet, 25 MG PO Q8H PRN for DIZZINESS, #30 TAB Prov:VICENTE HOLLIS MD 06/21/18 Neomycin Martini/Bacitrac Zn/Poly (Neosporin Ointment) 28.3 Gm Oint...g., 1 APPLIC TP Q6 for 5 Days, #28.3 Prov:NOY POOL 05/21/18 Naproxen* (Naprosyn*) 500 Mg Tablet, 500 MG PO BID PRN for PAIN AND/OR INFLAMMATION, #20 TAB Prov:MAULIK PIÑA PA-C 02/16/18 Tramadol HCl (Tramadol HCl) 50 Mg Tablet, 50 MG PO Q4 PRN for PAIN, #20 TAB Prov:MAULIK OTERO 06/07/17 Hydrocodone/Acetaminophen (Audubon 5-325 Tablet) 1 Each Tablet, 1 TAB PO Q6H PRN for PAIN, #20 TAB Prov:NGUYỄN HO Rahul 03/07/17 Ranitidine Hcl* (Zantac*) 150 Mg Tablet, 150 MG PO BID PRN for EPIGASTRIC PAIN, #30 TAB Prov:MAULIK OTEROLeonor 12/20/16 Olopatadine* (Patanol* Ophth) 0.1% - 5 Ml Drops, 1 DROP BOTH EYES BID, #1 EA Prov:TARATEMITOPE 06/25/16 Reported Medications Aspirin* (Aspirin* EC) 81 Mg Tablet.dr, 81 MG PO DAILY, TAB 12/01/17 Insulin Regular, Human (Humulin R) 100 Units/Ml Vial, 20 UNIT IM* BID WITH MEALS 07/31/13 Nph, Human Insulin Isophane (Humulin N) 100 Units/Ml Vial, 5 UNITS IM BID INJECT 5 UNITS IN TME MORNING AND 15 UNITS IN THE EVENING 07/31/13 Metformin* (Glucophage*) 1,000 Mg Tablet, 1000 MG PO bid 07/31/13 Simvastatin (Simvastatin) 20 Mg Tablet, 20 MG PO hs 07/31/13 Glimepiride* (Glimepiride*) 4 Mg Tablet, 4 MG PO bid' 07/31/13 Allergies Allergies: Coded Allergies: No Known Allergies (Verified Allergy, Mild, 04/25/18) PMhx/Soc History of Surgery: No Anesthesia Reaction: No Hx Neurological Disorder: No Hx Respiratory Disorders: No Hx Cardiac Disorders: Yes (heart problems, HLD) Hx Psychiatric Problems: No Hx Miscellaneous Medical Probl: Yes (DM) Hx Alcohol Use: No Hx Substance Use: No Hx Tobacco Use: No Smoking Status: Never smoker FmHx Family History: diabetes Physical Exam Vitals Vital Signs Date Temp Pulse Resp B/P (MAP) Pulse Ox O2 O2 Flow FiO2 Time Delivery Rate 01/08/19 97.2 107 18 140/91 99 23:10 (107) Physical Exam Const: No acute distress Head: Atraumatic Eyes: Normal Conjunctiva ENT: Bilateral tonsillar erythema and edema, no exudates, uvula midline, no kissing tonsils Neck: Full range of motion. No meningismus. Resp: Clear to auscultation bilaterally Cardio: Regular rate and rhythm, no murmurs Procedures/MDM Patient has pharyngitis. Is possibly viral however given she is diabetic I will treat her empirically with amoxicillin and also give her ibuprofen for pain. Patient counseled regarding my diagnostic impression and care plan. Prior to discharge all questions answered. Pt agrees with treatment plan and understands strict return precautions. Pt is instructed to follow up with primary care provider within 24-48 hours. Precautionary instructions provided including instructions to return to the ER if not improving or for any worsening or changing symptoms or concerns. Departure Diagnosis: Primary Impression: Pharyngitis Condition: Stable YOKASTA PAREKH PA-C Jan 09, 2019 01:43
[2019-01-09] MEDS ORDERED: AMOX500C2 PO (01:44)
[2019-01-09] MEDS ORDERED: IBUP800T48 PO (01:44)
[2019-01-09 01:58] VITALS: BP 138/87; PULSE 88; RESP 19
== END 2019-01-09 01:58 | disposition home or self-care (01) ==
LOC: FTE 23:08
DX: J02.9 Acute pharyngitis, unspecified (principal); E11.9 Type 2 diabetes mellitus without complications; Z79.4 Long term (current) use of insulin; Z79.82 Long term (current) use of aspirin
CPT/HCPCS: 99283

== ENCOUNTER 2019-01-18 18:55 | Inpatient (IN) | payer OTHER ==
[~2019-01-18] VITALS: Ht 154.9 cm; Wt 85.3 kg
[~2019-01-18 18:55] MED LIST changes: +AMOX500C2 PO
--- NOTE | 2019-01-18 20:03 | ERD ---
ER Documentation Chief Complaint Chief Complaint cough, fever, sore throat x 4 days +dizziness HPI 58-year-old woman complains of fever, sore throat, headache, generalized weakness, cough, dizziness times 4 days. She denies recent travel, sick contacts, or antibiotic use. Patient denies abdominal pain, no vomiting or diarrhea, no slurred speech or blurry vision. ROS All systems reviewed and are negative except as per history of present illness. Medications Home Meds Active Scripts Ibuprofen* (Motrin*) 800 Mg Tab, 800 MG PO Q6, #30 TAB Prov:YOKASTA PAREKH PA-C 01/09/19 Amoxicillin* (Amoxicillin*) 500 Mg Cap, 500 MG PO BID for 7 Days, CAP Prov:YOKASTA PAREKH PA-C 01/09/19 Ibuprofen* (Motrin*) 600 Mg Tab, 600 MG PO Q6H PRN for PAIN AND OR ELEVATED TEMP, #30 TAB Prov:JAXSON RECINOS PA-C 10/21/18 Naproxen* (Naprosyn*) 500 Mg Tablet, 500 MG PO BID PRN for PAIN AND/OR INFLAMMATION, #30 TAB Prov:AWAIS GRANT PA-C 08/17/18 Ibuprofen* (Motrin*) 800 Mg Tab, 800 MG PO Q6H PRN for PAIN AND OR ELEVATED TEMP, #30 TAB Prov:VICENTE HOLLIS MD 06/21/18 Hydrocodone/Acetaminophen ([place] 5-325 Tablet) 1 Each Tablet, 1 TAB PO Q6H PRN for PAIN, #7 TAB Prov:VICENTE HOLLIS MD 06/21/18 Meclizine Hcl* (Meclizine Hcl*) 25 Mg Tablet, 25 MG PO Q8H PRN for DIZZINESS, #30 TAB Prov:VICENTE HOLLIS MD 06/21/18 Neomycin Martini/Bacitrac Zn/Poly (Neosporin Ointment) 28.3 Gm Oint...g., 1 APPLIC TP Q6 for 5 Days, #28.3 Prov:NOY POOL 05/21/18 Naproxen* (Naprosyn*) 500 Mg Tablet, 500 MG PO BID PRN for PAIN AND/OR INFLAMMATION, #20 TAB Prov:MAULIK PIÑAC 02/16/18 Tramadol HCl (Tramadol HCl) 50 Mg Tablet, 50 MG PO Q4 PRN for PAIN, #20 TAB Prov:MAULIK OTERO 06/07/17 Hydrocodone/Acetaminophen ([place] 5-325 Tablet) 1 Each Tablet, 1 TAB PO Q6H PRN for PAIN, #20 TAB Prov:NGUYỄN HO 03/07/17 Ranitidine Hcl* (Zantac*) 150 Mg Tablet, 150 MG PO BID PRN for EPIGASTRIC PAIN, #30 TAB Prov:MAULIK OTERO 12/20/16 Olopatadine* (Patanol* Ophth) 0.1% - 5 Ml Drops, 1 DROP BOTH EYES BID, #1 EA Prov:TEMITOPE PACHECO DO 06/25/16 Reported Medications Aspirin* (Aspirin* EC) 81 Mg Tablet.dr, 81 MG PO DAILY, TAB 12/01/17 Insulin Regular, Human (Humulin R) 100 Units/Ml Vial, 20 UNIT IM* BID WITH MEALS 07/31/13 Nph, Human Insulin Isophane (Humulin N) 100 Units/Ml Vial, 5 UNITS IM BID INJECT 5 UNITS IN TME MORNING AND 15 UNITS IN THE EVENING 07/31/13 Metformin* (Glucophage*) 1,000 Mg Tablet, 1000 MG PO bid 07/31/13 Simvastatin (Simvastatin) 20 Mg Tablet, 20 MG PO hs 07/31/13 Glimepiride* (Glimepiride*) 4 Mg Tablet, 4 MG PO bid' 07/31/13 Allergies Allergies: Coded Allergies: No Known Allergies (Verified Allergy, Mild, 01/18/19) PMhx/Soc Hypertension, diabetes mellitus History of Surgery: No Anesthesia Reaction: No Hx Neurological Disorder: No Hx Respiratory Disorders: No Hx Cardiac Disorders: Yes (heart problems, HLD) Hx Psychiatric Problems: No Hx Miscellaneous Medical Probl: Yes (DM) Hx Alcohol Use: No Hx Substance Use: No Hx Tobacco Use: No Smoking Status: Never smoker FmHx Family History: No diabetes Physical Exam Vitals Vital Signs Date Temp Pulse Resp B/P (MAP) Pulse Ox O2 O2 Flow FiO2 Time Delivery Rate 01/18/19 102.5 91 16 115/51 100 Room Air 20:45 (72) 01/18/19 Nasal 20:13 Cannula 01/18/19 101.0 110 29 110/79 100 Room Air 19:51 (89) 01/18/19 101.0 137 22 142/83 100 19:23 (102) Physical Exam GENERAL: Well-developed, well-nourished, febrile, appears dehydrated HEENT: Dry mucous membranes, pink conjunctiva, no cervical spine tenderness or step-off deformities, no goiter, no jaundice or icterus, extraocular movements intact without pain. No submandibular induration, and no pharyngeal erythema NEURO: Alert and oriented 3, cranial nerves II through XII intact bilaterally, pupils equal round reactive to light, no focal deficits or facial asymmetry, sensation intact distally Strength 5/5 in upper and lower extremities bilaterally CARDIAC: Tachycardic and regular, no murmurs rubs or gallops LUNGS: Poor air entry bilaterally, no wheezing or stridor ABDOMEN: Soft nontender, no guarding, no rigidity, no rebound, no psoas sign no obturator sign. SKIN: Hot and dry to touch, no abrasions, contusions, or hematomas, no lacerations, no ecchymosis, no target lesions, and without ulcers EXTREMITIES: No clubbing cyanosis or edema, calves are bilaterally symmetrical, no Homans sign, no popliteal cord sign. Distal pulses equal and bilateral PSYCH: Normal affect without agitation or irritability Result Diagram: 01/18/19200901/18/192009 Results 24 hrs Laboratory Tests Test 01/18/19 19:49 01/18/19 20:10 01/18/19 20:15 POC Venous Lactate 2.0 mmol/L White Blood Count 2.6 10^3/ul Red Blood Count 4.61 10^6/ul Hemoglobin 12.0 g/dl Hematocrit 37.0 % Mean Corpuscular Volume 80.3 fl Mean Corpuscular Hemoglobin 26.0 pg Mean Corpuscular 32.4 g/dl Hemoglobin Concent Red Cell Distribution Width 14.6 % Platelet Count 269 10^3/UL Mean Platelet Volume 8.6 fl Immature Granulocytes % 0.400 % Neutrophils % % Segmented Neutrophils % (Manual) 20 % Band Neutrophils % (Manual) 1 % Lymphocytes % % Lymphocytes % (Manual) 52 % Monocytes % % Monocytes % (Manual) 24 % Eosinophils % % Eosinophils % (Manual) 3 % Basophils % % Nucleated Red Blood Cells % 1 % Immature Granulocytes # 0.010 10^3/ul Neutrophils # 10^3/ul Neutrophils # (Manual) 0.5 10^3/ul Band Neutrophils # 0.0 10^3/ul Lymphocytes (Manual) 1.3 10^3/ul Lymphocytes # 10^3/ul Monocytes # 10^3/ul Monocytes # (Manual) 0.6 10^3/ul Eosinophils # 10^3/ul Basophils # 10^3/ul Nucleated Red Blood Cells # 10^3/ul Platelet Estimate NORMAL Giant Platelets 2 % Polychromasia 1+ Anisocytosis 2+ Microcytosis 2+ Prothrombin Time 13.5 Sec Prothrombin Time Ratio 1.1 INR International 1.02 Normalized Ratio Activated Partial Thromboplast 27.5 Sec Time Sodium Level 141 mmol/L Potassium Level 3.8 mmol/L Chloride Level 103 mmol/L Carbon Dioxide Level 25 mmol/L Anion Gap 13 Blood Urea Nitrogen 9 mg/dl Creatinine 0.55 mg/dl Est Glomerular Filtrat > 60 mL/min Rate mL/min Glucose Level 168 mg/dl Calcium Level 9.4 mg/dl Total Bilirubin 0.2 mg/dl Direct Bilirubin 0.00 mg/dl Indirect Bilirubin 0.2 mg/dl Aspartate Amino Transf (AST/SGOT) 27 IU/L Alanine 17 IU/L Aminotransferase (ALT/SGPT) Alkaline Phosphatase 70 IU/L Troponin I < 0.012 ng/ml Total Protein 7.3 g/dl Albumin 3.9 g/dl Globulin 3.40 g/dl Albumin/Globulin Ratio 1.14 Lipase 38 U/L Urine Color YELLOW Urine Clarity CLEAR Urine pH 8.0 Urine Specific [place] 1.016 Urine Ketones 2+ mg/dL Urine Nitrite POSITIVE mg/dL Urine Bilirubin NEGATIVE mg/dL Urine Urobilinogen 2+ mg/dL Urine Leukocyte Esterase NEGATIVE Jeannie/ul Urine Microscopic RBC 1 /HPF Urine Microscopic WBC 3 /HPF Urine Bacteria FEW /HPF Urine Hemoglobin NEGATIVE mg/dL Urine Glucose NEGATIVE mg/dL Urine Total Protein NEGATIVE mg/dl Current Medications Medications Dose Sig/Darrick Start Time Status Last (Trade) Ordered Route PRN Stop Time Admin Dose Reason Admin Sodium 3,000 ml BOLUS OVER 2 01/18/19 DC 01/18/19 Chloride HOURS STAT 20:05 01/18/19 20:12 (NS) IV* 20:08 Ibuprofen 600 mg ONCE ONCE 01/18/19 DC 01/18/19 (Motrin) PO 20:30 01/18/19 20:33 20:31 Ceftriaxone 50 ml @ ONCE ONCE 01/18/19 DC 01/18/19 Sodium 100 mls/hr IVPB 20:30 01/18/19 20:34 20:59 Procedures/MDM IV line was established patient was placed on director of cardiac rehabilitation rhythm strip revealed a narrow complex tachycardia at 120 bpm with upright P and T waves. Patient was febrile, blood and urine cultures have been ordered results are pending I will follow-up. I do not suspect sepsis. EKG performed, read by me revealed a sinus tachycardia at 114 bpm, left axis deviation, narrow QRS complex, no concerning ST elevations or depressions noted 1 view chest x-ray performed, read by me reveals right lower lobe infiltrate, no pneumothorax, no air under the diaphragm I administered 3 L normal saline IV, ibuprofen 600 mg p.o., ceftriaxone 1 g IV. Lactic acid level was low at 2 and then fell to 1. I do not suspect sepsis. Influenza AB swabs and rapid strep swabs were negative. CBC reveals a leukopenia 2.6, electrolytes were within normal limits, liver function tests normal, troponin negative, urinalysis positive for infection. Patient will be admitted to [facility] for continued IV antibiotic therapy and IV fluid hydration. Departure Diagnosis: Primary Impression: Pneumonia Pneumonia type: due to unspecified organism Laterality: right Lung location: lower lobe of lung Qualified Codes: J18.1 - Lobar pneumonia, unspecified organism Additional Impression: Acute UTI Condition: FRANKIE Birmingham MD Jan 18, 2019 20:03
[2019-01-18] MEDS ORDERED: SODIUM CHLORIDE 0.9% 1L BAG IV* STA (20:05)
[2019-01-18] MEDS ORDERED: CEFTRIAXONE 1 GM/50 ML (PMX) 50 ML IVPB ONE (20:30)
[2019-01-18] MEDS ORDERED: IBUPROFEN 600 MG TAB PO ONE (20:30)
--- NOTE | 2019-01-18 22:10 | HP ---
Date/Time of Note Date/Time of Note DATE: 01/18/19 TIME: 22:10 Assessment/Plan VTE Prophylaxis SCD applied (from Nsg): Yes Pharmacological prophylaxis: NA/contraindicated Pharm contraindication: low risk/ambulating Lines/Catheters IV Catheter Type (from Nrsg): Saline Lock Assessment/Plan Hospital Course This is a 58-year-old male being admitted to the [facility] floor for: 1. sepsis: Secondary to community acquired pneumonia. Levaquin 750 mg every 24 hours times 5 days, pending cultures, lactate within normal values. 2. Community-acquired pneumonia: Levaquin, await culture results 3. urinary tract infection: Patient currently on Levaquin, await culture results 4 diabetes mellitus: We will check hemoglobin A1c, hold home oral medications, insulin sliding scale, will need to confirm patient's home insulin regimen with family. 5 hypertension: Currently does not have any blood pressure meds on the EMR, will need to confirm with the patient's family with what she is taking at home 6 DVT GI prophylaxis: SCDs, no GI prophylaxis indicated Further treatment strategy will be implemented as per the clinical course Result Diagram: 01/18/19200901/18/192009 Results 24hrs Laboratory Tests Test 01/18/19 19:49 01/18/19 20:10 01/18/19 20:15 01/18/19 22:02 POC Venous Lactate 2.0 1.0 White Blood Count 2.6 #L Red Blood Count 4.61 Hemoglobin 12.0 Hematocrit 37.0 Mean Corpuscular Volume 80.3 L Mean Corpuscular 26.0 L Hemoglobin Mean Corpuscular 32.4 Hemoglobin Concent Red Cell Distribution 14.6 #H Width Platelet Count 269 Mean Platelet Volume 8.6 Immature Granulocytes % 0.400 Neutrophils % Segmented Neutrophils 20 L % (Manual) Band Neutrophils % 1 (Manual) Lymphocytes % Lymphocytes % (Manual) 52 H Monocytes % Monocytes % (Manual) 24 H Eosinophils % Eosinophils % (Manual) 3 Basophils % Nucleated Red Blood 1 H Cells % Immature Granulocytes # 0.010 Neutrophils # Neutrophils # (Manual) 0.5 L Band Neutrophils # 0.0 Lymphocytes (Manual) 1.3 Lymphocytes # Monocytes # Monocytes # (Manual) 0.6 Eosinophils # Basophils # Nucleated Red Blood Cells # Platelet Estimate NORMAL Giant Platelets 2 H Polychromasia 1+ Anisocytosis 2+ Microcytosis 2+ Prothrombin Time 13.5 Prothrombin Time Ratio 1.1 INR International 1.02 Normalized Ratio Activated 27.5 Partial Thromboplast Time Sodium Level 141 Potassium Level 3.8 Chloride Level 103 Carbon Dioxide Level 25 Anion Gap 13 Blood Urea Nitrogen 9 Creatinine 0.55 Est Glomerular Filtrat > 60 Rate mL/min Glucose Level 168 Calcium Level 9.4 Total Bilirubin 0.2 Direct Bilirubin 0.00 Indirect Bilirubin 0.2 Aspartate Amino 27 Transf (AST/SGOT) Alanine 17 Aminotransferase (ALT/SG PT) Alkaline Phosphatase 70 Troponin I < 0.012 Total Protein 7.3 Albumin 3.9 Globulin 3.40 H Albumin/Globulin Ratio 1.14 Lipase 38 Urine Color YELLOW Urine Clarity CLEAR Urine pH 8.0 Urine Specific [place] 1.016 Urine Ketones 2+ H Urine Nitrite POSITIVE A Urine Bilirubin NEGATIVE Urine Urobilinogen 2+ H Urine Leukocyte Esterase NEGATIVE Urine Microscopic RBC 1 Urine Microscopic WBC 3 Urine Bacteria FEW A Urine Hemoglobin NEGATIVE Urine Glucose NEGATIVE Urine Total Protein NEGATIVE HPI/ROS Admit Date/Time Admit Date/Time Hx of Present Illness Chief complaint: Fevers cough times 5 days This is a 58-year-old female with a history of diabetes and hypertension who presents to the ER complaining of fever sore throat and cough times 5 days. P atient reports that she also was feeling weak and had cough productive of phlegm. She also at times had a sore throat. Denies any sick contacts. Denies any nausea vomiting or diarrhea. Denies any changes in vision. Patient also reports that she is a burning when she urinates. Allergies: NKDA Medications: See JAN ROS Const: As per HPI Eyes : No pain discharge or redness or change in visual acuity ENT: As per HPI Respiratory: As per HPI Cardiovascular: No chest pain, palpitation, PND, or edema GI : no change in appetite, abdominal pain, nausea, vomiting, diarrhea, constipation, or change in the color his stool Genitourinary: Chaz per HPI Musculoskeletal: No joint pain, back pain, neck pain, restricted range of motion in neck or joints Skin: No rash, bruising or hives Neuro: No headache, dizziness, syncope, seizure, focal weakness Endocrine: No polyuria, polydipsia, temperature intolerance Psych: No hallucination, depression, anxiety or suicidal ideation PMH/Family/Social Past Medical History Hypertension, diabetes mellitus insulin-dependent Coded Allergies: No Known Allergies (Verified Allergy, Mild, 01/18/19) Past Surgical History Past Surgical Hx: noncontributory Family History Significant Family History: no pertinent family hx Social History Alcohol Use: none Smoking Status: Never smoker Drug Use: none Exam/Review of Systems Vital Signs Vitals Vital Signs Date Temp Pulse Resp B/P (MAP) Pulse Ox O2 O2 Flow FiO2 Time Delivery Rate 01/18/19 99.1 97 16 93/54 (67) 98 Room Air 22:04 Exam Exam General: Currently lying in bed in no acute distress HEENT: Atraumatic, normocephalic. The pupils are equal, round and reactive. Extraocular motor are intact, canker sores of the oral cavity Neck: Supple with full range of motion. No rigidity or meningismus Chest: Nontender Lungs: Coarse breath sounds bilaterally Heart: Normal S1-S2, Regular rhythm and rate. Abdomen: Soft , nontender, nondistended , bowel sounds are present. No guarding no rebound tenderness , No masses or organomegaly. No costovertebral temporal angle mass Extremities: Normal to inspection, no edema no cyanosis Neurologic: Normal mental status, speech normal, cranial nerves II through XII are intact, motor and sensory are intact, no focal weakness Additional Comments EKG sinus tachycardia at 114 bpm, left axis deviation, narrow QRS complex, no concerning ST elevations or depressions noted PROCEDURE: XR Chest. CLINICAL INDICATION: chest pain TECHNIQUE: Single frontal view of the chest was obtained COMPARISON: CR CHEST 03/26/2016 FINDINGS: The heart and mediastinum are within normal limits. There is a mild patchy right lower lobe infiltrate. There is no pleural effusion or pneumothorax. RPTAT: AA IMPRESSION: Mild patchy right lower lobe infiltrate. .Kayode Brar MD, Date Time Electronically viewed and signed by .Kayode Brar MD, on 01/18/2019 20:39 .S/ CC: FRANKIE MALIN MD [phone] CAROLINA ZARAGOZA Jan 18, 2019 22:10
[2019-01-18] MEDS ORDERED: RANITIDINE 150 MG TAB PO PRN (22:30)
[2019-01-18] MEDS ORDERED: DOCUSATE SODIUM 100 MG CAP PO PRN (22:30)
[2019-01-18] MEDS ORDERED: ONDANSETRON 4 MG TAB PO PRN (22:30)
[2019-01-18] MEDS ORDERED: NACL 0.9% 3 ML SYG IV SCH (22:30)
[2019-01-18] MEDS ORDERED: BISACODYL (EC) 5 MG TAB PO PRN (22:30)
[2019-01-18] MEDS ORDERED: HYDROCODONE/APAP (5/325) TAB PO PRN (22:30)
[2019-01-18 22:52] VITALS: Ht 154.9 cm; Wt 85.3 kg
[2019-01-18] MEDS ORDERED: GLUCOSE GEL 15 GRAM TUBE PO PRN ×2 (23:00)
[2019-01-18] MEDS ORDERED: GLUCOSE GEL 15 GRAM TUBE BUCCAL PRN (23:00)
[2019-01-18] MEDS ORDERED: DEXTROSE 50% 50 ML SYRINGE IV PRN ×2 (23:00)
[2019-01-18] MEDS ORDERED: GLUCAGON 1 MG INJ IM PRN (23:00)
[2019-01-18] MEDS: LEVOFLOXACIN 750MG/D5W (PMX) 150 ML IVPB SCH (23:55)
[2019-01-19 02:00] VITALS: BP 110/62; PULSE 80; RESP 18
[2019-01-19] MEDS: ACCU-CHEK XX SCH (02:00)
[2019-01-19] MEDS ORDERED: LEVALBUTEROL (NEB) 1.25 MG/0.5 ML AMP HHN PRN (03:00)
[2019-01-19] MEDS ORDERED: SOD CHLORIDE 0.9% 500 ML IV ONE (03:00)
[2019-01-19] MEDS: ACETAMINOPHEN 325 MG TAB PO PRN ×2 (05:40→12:06)
[2019-01-19] MEDS: INSULIN ASPART [NOVOLOG] 3 ML PEN SC SCH ×4 (08:00→20:38)
[2019-01-19 08:03] VITALS: BP 109/73; PULSE 70; RESP 18
[2019-01-19] MEDS: NPH, HUMAN INSULIN ISOPHANE 3ML VIAL SC SCH ×2 (08:49→20:41)
[2019-01-19] MEDS: ASPIRIN (EC) 81 MG TAB PO SCH (08:54)
[2019-01-19] MEDS: OLOPATADINE 0.1% 5 ML OPH BOTH EYES SCH ×2 (08:54→20:42)
[2019-01-19 14:00] VITALS: BP 103/61; PULSE 64; RESP 18
--- NOTE | 2019-01-19 15:16 | PN ---
Date/Time of Note Date/Time of Note DATE: 01/19/19 TIME: 15:15 Assessment/Plan VTE Prophylaxis Risk score (from Nsg)>0 risk: 1 SCD applied (from Nsg): Yes Pharmacological prophylaxis: LMWH Lines/Catheters IV Catheter Type (from Nrs): Saline Lock Assessment/Plan Hospital Course SUBJECTIVE: Complains of sore throat. Complains of pain about the right premolar. OBJECTIVE: Physical Exam General: Adequately build 58 year-old female lying in bed in no apparent distress. HEENT: Normocephalic, atraumatic. Eyes: Anicteric sclerae, conjunctivae clear. ENT: Nasal septum midline, oral mucosa is moist. Tongue midline. Tenderness to palpation under the right zygomatic arch above the right premolar. Neck supple, no JVD noticed. Lymphadenopathy of the anterior cervical lymph nodes. Respiratory: Bilaterally clear breath sounds. No use of accessory muscles of respiration. No adventitious breath sounds. Cardiovascular: S1, S2 heard. Regular rate and rhythm. Abdomen: Soft, nontender, and nondistended. Bowel sounds positive in all 4 quadrants. Genitourinary: Deferred. Extremities: No cyanosis, no clubbing, no edema. Peripheral pulses palpable. Neurologic: Cranial nerves II through XII grossly intact. The patient is awake, alert, and oriented. Skin: Normal skin turgor. No skin rashes. Labs & Vitals per chart ASSESSMENT & PLAN 58-year-old female with comorbidities including diabetes mellitus, obesity, and hypertension who came to the emergency room with chief complaint of fever, sore throat, and cough for 5 days. The patient was noticed to have febrile illness, tachycardia, and bandemia. The patient's chest x-ray was showing mild patchy right lower lobe infiltrate. The patient was admitted to inpatient setting for further treatment and evaluation. 1. Sepsis with febrile illness, leukocytopenia, tachycardia, and bandemia, secondary to community for pneumonia and UTI. -Continue antimicrobials. -Urine culture growing Gram-negative rods 2. Community acquired pneumonia. -Continue Levaquin. 3. Urinary tract infection -Urine culture showing Gram-negative rods with colony count more than 100,000 CFU per mL. -Continue empiric antimicrobials. 4. Possible underlying sinusitis. -Obtain CT scan of the facial bones. -Continue antimicrobials. 5. Diabetes mellitus. -Hemoglobin A1c 7.1. -Continue sliding scale insulin along with basal insulin. 6. Essential hypertension -Continue antihypertensives. 7. Obesity. -BMI more than 35 kg/m. -Will advise weight reduction. 8. Fluids, electrolytes, and nutrition. -Carbohydrate controlled diet. 9. DVT prophylaxis -Subcutaneous Lovenox. 10. Plan. -Continue antimicrobials. -Await final cultures. -Obtain CT scan of the facial bones. The patient was seen in collaboration with Dr. Trevizo. Result Diagram: 01/19/19 0532 01/19/19 0532 Results 24hrs Laboratory Tests Test 01/18/19 19:49 01/18/19 20:10 01/18/19 20:15 01/18/19 22:02 POC Venous Lactate 2.0 1.0 White Blood Count 2.6 #L Red Blood Count 4.61 Hemoglobin 12.0 Hematocrit 37.0 Mean Corpuscular Volume 80.3 L Mean Corpuscular 26.0 L Hemoglobin Mean Corpuscular 32.4 Hemoglobin Concent Red Cell Distribution 14.6 #H Width Platelet Count 269 Mean Platelet Volume 8.6 Immature Granulocytes % 0.400 Neutrophils % Segmented Neutrophils 20 L % (Manual) Band Neutrophils % 1 (Manual) Lymphocytes % Lymphocytes % (Manual) 52 H Monocytes % Monocytes % (Manual) 24 H Eosinophils % Eosinophils % (Manual) 3 Basophils % Nucleated Red Blood 1 H Cells % Immature Granulocytes # 0.010 Neutrophils # Neutrophils # (Manual) 0.5 L Band Neutrophils # 0.0 Lymphocytes (Manual) 1.3 Lymphocytes # Monocytes # Monocytes # (Manual) 0.6 Eosinophils # Basophils # Nucleated Red Blood Cells # Platelet Estimate NORMAL Giant Platelets 2 H Polychromasia 1+ Anisocytosis 2+ Microcytosis 2+ Prothrombin Time 13.5 Prothrombin Time Ratio 1.1 INR International 1.02 Normalized Ratio Activated 27.5 Partial Thromboplast Time Sodium Level 141 Potassium Level 3.8 Chloride Level 103 Carbon Dioxide Level 25 Anion Gap 13 Blood Urea Nitrogen 9 Creatinine 0.55 Est Glomerular Filtrat > 60 Rate mL/min Glucose Level 168 Calcium Level 9.4 Total Bilirubin 0.2 Direct Bilirubin 0.00 Indirect Bilirubin 0.2 Aspartate Amino 27 Transf (AST/SGOT) Alanine 17 Aminotransferase (ALT/SG PT) Alkaline Phosphatase 70 Troponin I < 0.012 Total Protein 7.3 Albumin 3.9 Globulin 3.40 H Albumin/Globulin Ratio 1.14 Lipase 38 Urine Color YELLOW Urine Clarity CLEAR Urine pH 8.0 Urine Specific [place] 1.016 Urine Ketones 2+ H Urine Nitrite POSITIVE A Urine Bilirubin NEGATIVE Urine Urobilinogen 2+ H Urine Leukocyte Esterase NEGATIVE Urine Microscopic RBC 1 Urine Microscopic WBC 3 Urine Bacteria FEW A Urine Hemoglobin NEGATIVE Urine Glucose NEGATIVE Urine Total Protein NEGATIVE Test 01/18/19 23:27 01/19/19 00:19 01/19/19 05:32 01/19/19 08:11 Bedside Glucose 117 127 Lactic Acid Level 0.9 White Blood Count 3.2 #L Red Blood Count 3.67 #L Hemoglobin 9.7 L Hematocrit 29.7 L Mean Corpuscular Volume 80.9 L Mean Corpuscular 26.4 L Hemoglobin Mean Corpuscular 32.7 Hemoglobin Concent Red Cell Distribution 14.3 Width Platelet Count 253 Mean Platelet Volume 9.1 Immature Granulocytes % 0.600 H Neutrophils % Segmented Neutrophils 21 L % (Manual) Band Neutrophils % 14 H (Manual) Lymphocytes % Lymphocytes % (Manual) 35 Reactive Lymphocytes 4 H % (Manual) Monocytes % Monocytes % (Manual) 19 H Eosinophils % Eosinophils % (Manual) 6 Basophils % Metamyelocytes % 1 H (manual) Nucleated Red Blood 0.0 Cells % Immature Granulocytes # 0.020 Neutrophils # Neutrophils # (Manual) 0.7 L Band Neutrophils # 0.4 Lymphocytes (Manual) 1.1 Lymphocytes # Reactive Lymphocytes # 0.1 H Monocytes # Monocytes # (Manual) 0.6 Eosinophils # Basophils # Metamyelocytes # 0.0 Nucleated Red Blood Cells # Platelet Estimate NORMAL Giant Platelets 2 H Polychromasia 3+ Poikilocytosis 1+ Anisocytosis 2+ Microcytosis 2+ Ovalocytes 1+ Sodium Level 141 Potassium Level 3.9 Chloride Level 109 Carbon Dioxide Level 24 Anion Gap 8 Blood Urea Nitrogen 6 L Creatinine 0.56 Est Glomerular Filtrat > 60 Rate mL/min Glucose Level 134 Hemoglobin A1c 7.1 H Calcium Level 8.1 L Magnesium Level 1.7 Total Bilirubin 0.1 L Direct Bilirubin 0.00 Indirect Bilirubin 0.1 Aspartate Amino 17 Transf (AST/SGOT) Alanine 22 Aminotransferase (ALT/SG PT) Alkaline Phosphatase 55 Total Protein 5.6 #L Albumin 2.8 #L Globulin 2.80 Albumin/Globulin Ratio 1.00 Triglycerides Level 58 Cholesterol Level 73 L LDL Cholesterol, 38 Calculated HDL Cholesterol 23 L Cholesterol/HDL Ratio 3.1 Thyroid Stimulating 1.880 Hormone (TSH) Test 01/19/19 12:02 Bedside Glucose 125 Exam/Review of Systems Exam Vitals Vital Signs Date Temp Pulse Resp B/P (MAP) Pulse Ox O2 O2 Flow FiO2 Time Delivery Rate 01/19/19 98.2 70 18 109/73 97 Room Air 08:03 (85) Intake and Output 01/18/19 01/18/19 01/19/19 1414:59 22:59 06:59 IntakeIntake Total 890 ml BalanceBalance 890 ml Results Results 24hrs Laboratory Tests Test 01/18/19 19:49 01/18/19 20:10 01/18/19 20:15 01/18/19 22:02 POC Venous Lactate 2.0 1.0 White Blood Count 2.6 #L Red Blood Count 4.61 Hemoglobin 12.0 Hematocrit 37.0 Mean Corpuscular Volume 80.3 L Mean Corpuscular 26.0 L Hemoglobin Mean Corpuscular 32.4 Hemoglobin Concent Red Cell Distribution 14.6 #H Width Platelet Count 269 Mean Platelet Volume 8.6 Immature Granulocytes % 0.400 Neutrophils % Segmented Neutrophils 20 L % (Manual) Band Neutrophils % 1 (Manual) Lymphocytes % Lymphocytes % (Manual) 52 H Monocytes % Monocytes % (Manual) 24 H Eosinophils % Eosinophils % (Manual) 3 Basophils % Nucleated Red Blood 1 H Cells % Immature Granulocytes # 0.010 Neutrophils # Neutrophils # (Manual) 0.5 L Band Neutrophils # 0.0 Lymphocytes (Manual) 1.3 Lymphocytes # Monocytes # Monocytes # (Manual) 0.6 Eosinophils # Basophils # Nucleated Red Blood Cells # Platelet Estimate NORMAL Giant Platelets 2 H Polychromasia 1+ Anisocytosis 2+ Microcytosis 2+ Prothrombin Time 13.5 Prothrombin Time Ratio 1.1 INR International 1.02 Normalized Ratio Activated 27.5 Partial Thromboplast Time Sodium Level 141 Potassium Level 3.8 Chloride Level 103 Carbon Dioxide Level 25 Anion Gap 13 Blood Urea Nitrogen 9 Creatinine 0.55 Est Glomerular Filtrat > 60 Rate mL/min Glucose Level 168 Calcium Level 9.4 Total Bilirubin 0.2 Direct Bilirubin 0.00 Indirect Bilirubin 0.2 Aspartate Amino 27 Transf (AST/SGOT) Alanine 17 Aminotransferase (ALT/SG PT) Alkaline Phosphatase 70 Troponin I < 0.012 Total Protein 7.3 Albumin 3.9 Globulin 3.40 H Albumin/Globulin Ratio 1.14 Lipase 38 Urine Color YELLOW Urine Clarity CLEAR Urine pH 8.0 Urine Specific [place] 1.016 Urine Ketones 2+ H Urine Nitrite POSITIVE A Urine Bilirubin NEGATIVE Urine Urobilinogen 2+ H Urine Leukocyte Esterase NEGATIVE Urine Microscopic RBC 1 Urine Microscopic WBC 3 Urine Bacteria FEW A Urine Hemoglobin NEGATIVE Urine Glucose NEGATIVE Urine Total Protein NEGATIVE Test 01/18/19 23:27 01/19/19 00:19 01/19/19 05:32 01/19/19 08:11 Bedside Glucose 117 127 Lactic Acid Level 0.9 White Blood Count 3.2 #L Red Blood Count 3.67 #L Hemoglobin 9.7 L Hematocrit 29.7 L Mean Corpuscular Volume 80.9 L Mean Corpuscular 26.4 L Hemoglobin Mean Corpuscular 32.7 Hemoglobin Concent Red Cell Distribution 14.3 Width Platelet Count 253 Mean Platelet Volume 9.1 Immature Granulocytes % 0.600 H Neutrophils % Segmented Neutrophils 21 L % (Manual) Band Neutrophils % 14 H (Manual) Lymphocytes % Lymphocytes % (Manual) 35 Reactive Lymphocytes 4 H % (Manual) Monocytes % Monocytes % (Manual) 19 H Eosinophils % Eosinophils % (Manual) 6 Basophils % Metamyelocytes % 1 H (manual) Nucleated Red Blood 0.0 Cells % Immature Granulocytes # 0.020 Neutrophils # Neutrophils # (Manual) 0.7 L Band Neutrophils # 0.4 Lymphocytes (Manual) 1.1 Lymphocytes # Reactive Lymphocytes # 0.1 H Monocytes # Monocytes # (Manual) 0.6 Eosinophils # Basophils # Metamyelocytes # 0.0 Nucleated Red Blood Cells # Platelet Estimate NORMAL Giant Platelets 2 H Polychromasia 3+ Poikilocytosis 1+ Anisocytosis 2+ Microcytosis 2+ Ovalocytes 1+ Sodium Level 141 Potassium Level 3.9 Chloride Level 109 Carbon Dioxide Level 24 Anion Gap 8 Blood Urea Nitrogen 6 L Creatinine 0.56 Est Glomerular Filtrat > 60 Rate mL/min Glucose Level 134 Hemoglobin A1c 7.1 H Calcium Level 8.1 L Magnesium Level 1.7 Total Bilirubin 0.1 L Direct Bilirubin 0.00 Indirect Bilirubin 0.1 Aspartate Amino 17 Transf (AST/SGOT) Alanine 22 Aminotransferase (ALT/SG PT) Alkaline Phosphatase 55 Total Protein 5.6 #L Albumin 2.8 #L Globulin 2.80 Albumin/Globulin Ratio 1.00 Triglycerides Level 58 Cholesterol Level 73 L LDL Cholesterol, 38 Calculated HDL Cholesterol 23 L Cholesterol/HDL Ratio 3.1 Thyroid Stimulating 1.880 Hormone (TSH) Test 01/19/19 12:02 Bedside Glucose 125 Medications Medication Current Medications Insulin Human NPH (Humulin N) 5 unit BID SC Last administered on 01/19/19at 08 :49; Admin Dose 5 UNIT; Start 01/19/19 at 09:00 Olopatadine HCl (Patanol 0.1% Oph) 1 drop BID BOTH EYES Last administered on 01/19/19at 08:54; Admin Dose 1 DROP; Start 01/19/19 at 09:00 Ranitidine HCl (Zantac) 150 mg BID PRN PO EPIGASTRIC PAIN; Start 01/18/19 at 22:30 Tramadol HCl (Ultram) 50 mg Q4 PRN PO PAIN; Start 01/18/19 at 22:30 IV Flush (NS 3 ml) 3 ml PER PROTOCOL IV ; Start 01/18/19 at 22:30 Ondansetron HCl (Zofran Tab) 4 mg Q6H PRN PO NAUSEA/VOMITING; Start 01/18/19 at 22:30 Acetaminophen (Tylenol Tab) 650 mg Q6H PRN PO .PAIN 1-3 OR TEMP Last administered on 01/19/19at 12:06; Admin Dose 650 MG; Start 01/18/19 at 22:30 Acetaminophen/ Hydrocodone Bitart (Smoot (5/325)) 1 tab Q6H PRN PO .MOD PAIN 4- 6; Start 01/18/19 at 22:30 Docusate Sodium (Colace) 100 mg Q12H PRN PO .CONSTIPATION; Start 01/18/19 at 22:30 Bisacodyl (Dulcolax) 5 mg DAILY PRN PO .CONSTIPATION; Start 01/18/19 at 22:30 Diagnostic Test (Pha) (Accu-Chek) 1 ea 02 XX ; Start 01/19/19 at 02:00 Insulin Aspart (Novolog Insulin Pen) NOVOLOG *MILD* ALGORITHM WITH MEALS BEDTIME SC ; Start 01/19/19 at 08:00 Levofloxacin/ Dextrose 150 ml @ 100 mls/hr Q24H IVPB Last administered on 01/18/19at 23:55; Admin Dose 100 MLS/HR; Start 01/18/19 at 22:30; Stop 01/23/19 at 22:29 Miscellaneous Information 1 ea NOTE XX ; Start 01/18/19 at 23:00 Glucose (Glutose) 15 gm Q15M PRN PO DECREASED GLUCOSE; Start 01/18/19 at 23:00 Glucose (Glutose) 22.5 gm Q15M PRN PO DECREASED GLUCOSE; Start 01/18/19 at 23:00 Dextrose (D50w Syringe) 25 ml Q15M PRN IV DECREASED GLUCOSE; Start 01/18/19 at 23:00 Dextrose (D50w Syringe) 50 ml Q15M PRN IV DECREASED GLUCOSE; Start 01/18/19 at 23:00 Glucagon (Glucagen) 1 mg Q15M PRN IM DECREASED GLUCOSE; Start 01/18/19 at 23:00 Glucose (Glutose) 15 gm Q15M PRN BUCCAL DECREASED GLUCOSE; Start 01/18/19 at 23:00 Aspirin (Halfprin) 81 mg DAILY PO Last administered on 01/19/19at 08:54; Admin Dose 81 MG; Start 01/19/19 at 09:00 Levalbuterol (Xopenex Neb) 1.25 mg Q4H RESP THERAPY PRN HHN SHORTNESS OF BREATH; Start 01/19/19 at 03:00 Atorvastatin Calcium (Lipitor) 10 mg DAILY@21 PO ; Start 01/19/19 at 21:00 Phenol (Cepastat Lozenge) 1 lozenge Q1H PRN MT SORE THROAT; Start 01/19/19 at 15:30; Status JUAQUIN MILES NP Jan 19, 2019 15:16
[2019-01-19] MEDS ORDERED: CEPASTAT LOZENGE MT PRN (15:30)
[2019-01-19] MEDS ORDERED: ATORVASTATIN 10 MG TAB ONE (19:50)
[2019-01-19 20:00] VITALS: BP 112/65; PULSE 63; RESP 18
[2019-01-19] MEDS ORDERED: ATORVASTATIN 10 MG TAB PO SCH (21:00)
[2019-01-19] MEDS ORDERED: NON-FORMULARY/PATIENT OWN MED (Simvastatin 20 MG) PO SCH (21:00)
[2019-01-19] MEDS ORDERED: SOD CHLORIDE 0.9% 100 ML ONE (21:19)
[2019-01-19] MEDS ORDERED: IOHEXOL 300MG/ML 150 ML BTL ONE (21:19)
[2019-01-19] MEDS: LEVOFLOXACIN 750MG/D5W (PMX) 150 ML IVPB SCH (21:44)
[2019-01-19] MEDS: traMADol 50 MG TAB PO PRN (23:46)
[2019-01-20 02:00] VITALS: BP 101/57; PULSE 74; RESP 18
[2019-01-20] MEDS: ACCU-CHEK XX SCH (02:00)
[2019-01-20] MEDS: traMADol 50 MG TAB PO PRN ×2 (05:16→12:13)
[2019-01-20 07:54] VITALS: BP 103/61; PULSE 69; RESP 16
[2019-01-20] MEDS: INSULIN ASPART [NOVOLOG] 3 ML PEN SC SCH ×3 (08:00→17:37)
[2019-01-20] MEDS: NPH, HUMAN INSULIN ISOPHANE 3ML VIAL SC SCH (08:12)
[2019-01-20] MEDS: ASPIRIN (EC) 81 MG TAB PO SCH (08:52)
[2019-01-20] MEDS: OLOPATADINE 0.1% 5 ML OPH BOTH EYES SCH (08:52)
[2019-01-20] MEDS ORDERED: ENOXAPARIN 40 MG/0.4 ML SYG SC SCH (09:00)
[2019-01-20 13:48] VITALS: BP 104/59; PULSE 63; RESP 18
--- NOTE | 2019-01-20 17:04 | PN ---
Assessment/Plan VTE Prophylaxis Risk score (from Ns)>0 risk: 2 Assessment/Plan Result Diagram: 01/20/19 0452 01/20/19 0452 Results 24hrs Laboratory Tests Test 01/19/19 17:07 01/19/19 20:37 01/20/19 04:52 01/20/19 12:06 Bedside Glucose 133 115 100 White Blood Count 3.8 L Red Blood Count 3.61 L Hemoglobin 9.6 L Hematocrit 29.2 L Mean Corpuscular 80.9 L Volume Mean Corpuscular 26.6 L Hemoglobin Mean Corpuscular 32.9 Hemoglobin Concent Red Cell Distribution 14.5 Width Platelet Count 375 # Mean Platelet Volume 9.1 Immature Granulocytes 1.600 H % Neutrophils % Segmented Neutrophils 24 L % (Manual) Band Neutrophils % 1 (Manual) Lymphocytes % Lymphocytes % (Manual) 52 H Monocytes % Monocytes % (Manual) 16 H Eosinophils % Eosinophils % (Manual) 7 Basophils % Nucleated Red Blood 0.0 Cells % Immature Granulocytes 0.060 H # Neutrophils # Neutrophils # (Manual) 0.9 L Band Neutrophils # 0.0 Lymphocytes (Manual) 1.9 Lymphocytes # Monocytes # Monocytes # (Manual) 0.6 Eosinophils # Basophils # Nucleated Red Blood Cells # Platelet Estimate NORMAL Giant Platelets 1 H Polychromasia 2+ Anisocytosis 1+ Microcytosis 1+ Sodium Level 142 Potassium Level 3.4 L Chloride Level 109 Carbon Dioxide Level 24 Anion Gap 9 Blood Urea Nitrogen 6 L Creatinine 0.52 Est Glomerular Filtrat > 60 Rate mL/min Glucose Level 66 #L Calcium Level 8.7 Phosphorus Level 3.7 Magnesium Level 1.8 Exam/Review of Systems Exam Vitals Medications Medication JUAQUIN CHOI NP Jan 20, 2019 17:04
[2019-01-20] MEDS ORDERED: LEVO750T25 PO (17:31)
[2019-01-20] MEDS ORDERED: AMOX500C2 PO (17:31)
--- NOTE | 2019-01-20 17:40 | PDOCDIS ---
Discharge Instructions CONDITION [id number] Patient Condition: [id number] Stable HOME CARE INSTRUCTIONS: [id number] Special Diet: [id number] Low carbohydrate OTHER ORDERS: Other Orders: 1. Resume home medications. 2. Complete the course of antibiotics. 3. Take a low carbohydrate diet. 4. Follow-up with your primary care physician in 1 week. 5. Resume activities as tolerated. 6. Please go to the nearest emergency room if you have persistent fevers, persistent nausea/vomiting, or any other unusual signs/symptoms. JUAQUIN CHOI NP Jan 20, 2019 17:40
[2019-01-20] MEDS ORDERED: POTASSIUM CHLORIDE (SR) 10 MEQ TAB PO ONE (18:00)
--- NOTE | 2019-01-20 18:18 | DS ---
Date/Time of Note Date/Time of Note DATE: 01/20/19 TIME: 18:15 Discharge Summary Admission/Discharge Info Admit Date/Time Jan 18, 2019 at 21:33 Discharge Date/Time Discharge Diagnosis 1. Sepsis with febrile illness, leukocytopenia, tachycardia, and bandemia, se condary to community acquired pneumonia and UTI. 2. Community acquired pneumonia. 3. Urinary tract infection. 4. Sinusitis. 5. Diabetes mellitus. Hemoglobin A1c 7.1. 6. Essential hypertension. 7. Obesity. BMI more than 35 kg/m. Patient Condition: Stable Procedures Face CT IMPRESSION: 1. No facial soft tissue abscess/definite inflammatory changes identified. 2. Paranasal sinus disease described above. CXR IMPRESSION: Mild patchy right lower lobe infiltrate. Hx of Present Illness This is a 58-year-old female with comorbidities including diabetes mellitus, obesity, and hypertension who came to the emergency room with chief complaint of fever, sore throat, and cough for 5 days. The patient was noticed to have febrile illness, tachycardia, and bandemia. The patient's chest x-ray was izabela wing mild patchy right lower lobe infiltrate. The patient was admitted to inpatient setting for further treatment and evaluation. Hospital Course The patient had evidence of underlying sepsis with leukocytopenia, tachycardia, and bandemia. The patient was maintained on antimicrobials. Pancultures were obtained. The patient's influenza A and B screen was negative. The patient's rapid strep screen was negative. The patient's urine culture was showing E. coli with a colony count of more than 100,000 CFU per mL. The patient's chest x-ray was showing evidence of underlying infiltrates. The patient was treated for community company acquired pneumonia and UTI. The patient was also complaining of pain over the sinuses that was very tender to palpation. Therefore, the patient underwent a face CT that was showing evidence of paranasal sinus disease. Therefore, the patient was started on amoxicillin along with fluoroquinolone since fluoroquinolones do not have Strep coverage. The patient responded well to the antimicrobial regimen. The patient's chronic problems include diabetes mellitus. Her hemoglobin A1c was found to be 7.1. She was maintained on sliding scale insulin along with basal insulin. She was maintained on antihypertensives for her underlying hypertension. She is obese with a BMI of more than 35 kg/m. The patient was advised on weight reduction. The patient had a stable hospital course. The patient is stable to be discharged home, to be continued on oral antimicrobials for completion of therapy and to follow-up with outpatient certified neurodiagnostic technologist. Discharge Instructions 1. Resume home medications. 2. Complete the course of antibiotics. 3. Take a low carbohydrate diet. 4. Follow-up with your primary care physician in 1 week. 5. Resume activities as tolerated. 6. Please go to the nearest emergency room if you have persistent fevers, persistent nausea/vomiting, or any other unusual signs/symptoms. The patient verbalized understanding of her discharge instructions. The patient was seen in collaboration with Dr. Trevizo. Home Meds Active Scripts Amoxicillin* (Amoxicillin*) 500 Mg Cap, 500 MG PO Q8 for 7 Days, #21 CAP Prov:JUAQUIN CHOI PRESSURE DISPATCHER 01/20/19 Levofloxacin* (Levaquin*) 750 Mg Tablet, 750 MG PO DAILY, #7 TAB Prov:JUAQUIN CHOI PRESSURE DISPATCHER 01/20/19 Reported Medications Aspirin* (Aspirin* EC) 81 Mg Tablet., 81 MG PO DAILY, TAB 12/01/17 Insulin Regular, Human (Humulin R) 100 Units/Ml Vial, 20 UNIT IM* BID WITH MEALS 07/31/13 Nph, Human Insulin Isophane (Humulin N) 100 Units/Ml Vial, 5 UNITS IM BID INJECT 5 UNITS IN TME MORNING AND 15 UNITS IN THE EVENING 07/31/13 Metformin* (Glucophage*) 1,000 Mg Tablet, 1000 MG PO bid 07/31/13 Simvastatin (Simvastatin) 20 Mg Tablet, 20 MG PO hs 07/31/13 Glimepiride* (Glimepiride*) 4 Mg Tablet, 4 MG PO bid' 07/31/13 Discontinued Scripts Ibuprofen* (Motrin*) 800 Mg Tab, 800 MG PO Q6, #30 TAB Prov:YOKASTA PAREKH PA-C 01/09/19 Amoxicillin* (Amoxicillin*) 500 Mg Cap, 500 MG PO BID for 7 Days, CAP Prov:YOKASTA PAREKH PA-C 01/09/19 Ibuprofen* (Motrin*) 600 Mg Tab, 600 MG PO Q6H PRN for PAIN AND OR ELEVATED TEMP, #30 TAB Prov:JAXSON RECINOS PA-C 10/21/18 Naproxen* (Naprosyn*) 500 Mg Tablet, 500 MG PO BID PRN for PAIN AND/OR INFLAMMATION, #30 TAB Prov:PROUSE,AWAIS M. PA-C 08/17/18 Ibuprofen* (Motrin*) 800 Mg Tab, 800 MG PO Q6H PRN for PAIN AND OR ELEVATED TEMP, #30 TAB Prov:VICENTE HOLLIS MD 06/21/18 Hydrocodone/Acetaminophen ([place] 5-325 Tablet) 1 Each Tablet, 1 TAB PO Q6H PRN for PAIN, #7 TAB Prov:VICENTE HOLLIS MD 06/21/18 Meclizine Hcl* (Meclizine Hcl*) 25 Mg Tablet, 25 MG PO Q8H PRN for DIZZINESS, #30 TAB Prov:VICENTE HOLLIS MD 06/21/18 Neomycin Martini/Bacitrac Zn/Poly (Neosporin Ointment) 28.3 Gm Oint...g., 1 APPLIC TP Q6 for 5 Days, #28.3 Prov:NOY POOL 05/21/18 Naproxen* (Naprosyn*) 500 Mg Tablet, 500 MG PO BID PRN for PAIN AND/OR INFLAMMATION, #20 TAB Prov:MAULIK PIÑA PA-C 02/16/18 Tramadol HCl (Tramadol HCl) 50 Mg Tablet, 50 MG PO Q4 PRN for PAIN, #20 TAB Prov:MAULIK OTERO 06/07/17 Hydrocodone/Acetaminophen ([place] 5-325 Tablet) 1 Each Tablet, 1 TAB PO Q6H PRN for PAIN, #20 TAB Prov:NGUYỄN HO 03/07/17 Ranitidine Hcl* (Zantac*) 150 Mg Tablet, 150 MG PO BID PRN for EPIGASTRIC PAIN, #30 TAB Prov:MAULIK OTERO 12/20/16 Olopatadine* (Patanol* Ophth) 0.1% - 5 Ml Drops, 1 DROP BOTH EYES BID, #1 EA Prov:TEMITOPE PACHECO DO 06/25/16 Primary Care Provider [facility] Time spent on discharge: > 30 minutes Pending Labs RUN DATE: 01/20/19 [facility] PAGE 1 RUN TIME: [id number] [place] [address] Gaetano Morin M.D. Geospatial Imagery Intelligence Analyst Daniel uZniga M.D. [employer]atial Imagery Intelligence Analyst LAN#: [id number] Name: SAURABH CAMPBELL Age/Sex: 58/F Attend Dr: CAROLINA ZARAGOZA Acct: [id number] MR# : [id number] : 1960 Location: [facility] 2248-A Admit: 01/18/19 Specimen: [id number] Status: Complete [place]: 01/18/19 Rcvd: 01/18/19 Source: DALJIT Meek Sp Descrip: Procedure Result -- Microbiology URINE CULTURE Final Organism 1 ESCHERICHIA COLI COLONY COUNT >100,000 CFU/ml E COLI M.I.C. RX --------- --- AMPICILLIN >=32 R CEFAZOLIN <=4 S CEFOTAXIME S CIPROFLOXACIN <=0.25 S GENTAMICIN <=1 S LEVOFLOXACIN <=0.12 S NITROFURANTOIN <=16 S TOBRAMYCIN <=1 S TRIMETHOPRIM/SULFAMETHOXAZOLE >=320 R ............................................................................................ Flags: Critical Hi = *H Critical Lo = *L Microbiology Abnormal = * Abnormal Hi = H Abnormal Lo = L Blood Bank Abnormal = * Susceptability Flags: S = Sensitive R = Resistant I = Intermediate END OF REPORT Laboratory Tests Test 01/19/19 20:37 01/20/19 04:52 01/20/19 12:06 01/20/19 17:26 Bedside 115 100 89 Glucose mg/dL (70-220) mg/dL (70-220) mg/dL (70-220) White Blood 3.8 Count 10^3/ul (4.8-1 0.8) Red Blood 3.61 Count 10^6/ul (4.20- 5.40) Hemoglobin 9.6 g/dl (12.0-16. 0) Hematocrit 29.2 % (37.0-47.0) Mean 80.9 Corpuscular fl (82.0-101.0 Volume ) Mean 26.6 Corpuscular pg (29.0-33.0) Hemoglobin Mean 32.9 Corpuscular g/dl (32.0-37. Hemoglobin Conc 0) ent Red Cell 14.5 Distribution % (11.5-14.5) Width Platelet Count 375 10^3/UL (140-4 15) Mean Platelet 9.1 Volume fl (7.4-10.4) Immature 1.600 Granulocytes % % (0.001-0.429 ) Neutrophils % % (39.0-77.0) Segmented 24 % (39-77) Neutrophils % (Manual) Band 1 % (0-4) Neutrophils % (Manual) Lymphocytes % % (15.0-51.0) Lymphocytes % 52 % (15-51) (Manual) Monocytes % % (0.0-11.0) Monocytes % 16 % (0-11) (Manual) Eosinophils % % (0.0-7.0) Eosinophils % 7 % (0-7) (Manual) Basophils % % (0.0-2.0) Nucleated Red 0.0 Blood Cells % /100WBC (0.0-0 .0) Immature 0.060 Granulocytes # 10^3/ul (0.0-0 .031) Neutrophils # 10^3/ul (1.6-7 .5) Neutrophils # 0.9 (Manual) 10^3/ul (1.6-7 .5) Band 0.0 Neutrophils # 10^3/ul (0.0-0 .6) Lymphocytes 1.9 (Manual) 10^3/ul (0.8-2 .9) Lymphocytes # 10^3/ul (0.8-2 .9) Monocytes # 10^3/ul (0.3-0 .9) Monocytes # 0.6 (Manual) 10^3/ul (0.3-0 .9) Eosinophils # 10^3/ul (0.0-0 .5) Basophils # 10^3/ul (0.0-0 .1) Nucleated Red 10^3/ul (0.0-0 Blood Cells # .0) Platelet NORMAL Estimate Giant Platelets 1 % (0-0) Polychromasia 2+ (0-0) Anisocytosis 1+ (0-0) Microcytosis 1+ (0-0) Sodium Level 142 mmol/L (135-14 4) Potassium 3.4 Level mmol/L (3.5-5. 1) Chloride Level 109 mmol/L (97-110 ) Carbon Dioxide 24 Level mmol/L (21-31) Anion Gap 9 (5-13) Blood Urea 6 mg/dl (7-20) Nitrogen Creatinine 0.52 mg/dl (0.44-1. 00) Est Glomerular > 60 Filtrat mL/min (>60) Rate mL/min Glucose Level 66 mg/dl (70-220) Calcium Level 8.7 mg/dl (8.4-10. 2) Phosphorus 3.7 Level mg/dl (2.5-4.9 ) Magnesium 1.8 Level mg/dl (1.7-2.5 ) JUAQUIN CHOI NP Jan 20, 2019 18:18
[2019-01-20] MEDS ORDERED: MAGNESIUM SULFATE 2 GM/50 ML 50 ML IVPB ONE (19:00)
[2019-01-20] MEDS ORDERED: AMOXICILLIN 500 MG CAP PO SCH (22:00)
== END 2019-01-20 18:44 | disposition home or self-care (01) | DRG 871 ==
LOC: E/R 18:55 → PP2 21:33
PROVIDERS: ADMIT Family Medicine; ATTEND Family Medicine
DX: A41.9 Sepsis, unspecified organism (principal); J18.9 Pneumonia, unspecified organism; N39.0 Urinary tract infection, site not specified; E11.9 Type 2 diabetes mellitus without complications; E78.5 Hyperlipidemia, unspecified; B96.20 Unspecified Escherichia coli [E. coli] as the cause of diseases classified elsewhere; E66.9 Obesity, unspecified; E86.0 Dehydration; I10 Essential (primary) hypertension; Y95 Nosocomial condition; J01.90 Acute sinusitis, unspecified; R50.9 Fever, unspecified; Z68.35 Body mass index [BMI] 35.0-35.9, adult; Z71.3 Dietary counseling and surveillance
CPT/HCPCS: 36415; 70486; 71045; 80048; 80053; 80061; 81001; 82962; 83036; 83605; 83690; 83735; 84100; 84443; 84484; 85025; 85610; 85730; 87040; 87086; 87400; 87880; 93005; 96374; J0696; J1650; J1815; J1956; J3475; J7030; J7040; Q9967

== ENCOUNTER 2019-02-28 19:13 | Emergency (ER) | payer OTHER ==
[~2019-02-28] VITALS: Ht 154.9 cm; Wt 87.8 kg
[~2019-02-28 19:13] MED LIST changes: -HYDR-4011 PO; -IBUP-1542 PO; -IBUP800T48 PO; +LEVO750T25 PO; -MECL-77 PO; -NAPR-985 PO; -NEOM28.33 TP; -OLOP5DRO12 BOTH EYES; -RANI150T35 PO; -TRAM50TA2 PO
[2019-02-28 19:31] VITALS: Ht 154.9 cm; Wt 87.8 kg
[2019-02-28] MEDS ORDERED: morphine 4 MG/ML VIAL IV STA (19:59)
[2019-02-28] MEDS ORDERED: ONDANSETRON 4 MG INJ IV STA (19:59)
--- NOTE | 2019-02-28 21:11 | ERD ---
ER Documentation Chief Complaint Chief Complaint CP w/ bilateral feet/hand pain x4 days w/ SOB HPI This is a very pleasant 58-year-old female who presents to the emergency room with 4-5 days of bilateral hand and foot pain. The patient describes a stocking and glove distribution of pain and burning and tingling to bilateral hands and feet. The patient is a diabetic and takes insulin. She describes compliance. Patient also notes chest wall pain with cough for approximately 2 days. The patient's cough is dry nonproductive. Chest pain is only occurring with cough, nonpleuritic and nonexertional. During the patient's encounter translation services were utilized Language: Korean\ Source: In person ROS All systems reviewed and are negative except as per history of present illness. Medications Home Meds Active Scripts Ondansetron (Ondansetron Odt) 4 Mg Tab.rapdis, 4 MG PO Q6H PRN for NAUSEA AND/OR VOMITING, #10 TAB Prov:VICENTE HOLLIS MD 02/28/19 Hydrocodone/Acetaminophen ([place] 5-325 Tablet) 1 Each Tablet, 1 TAB PO Q6H PRN for PAIN, #7 TAB Prov:VICENTE HOLLIS MD 02/28/19 Gabapentin* (Gabapentin*) 100 Mg Capsule, 100 MG PO TID, #90 CAP Prov:VICENTE HOLLIS MD 02/28/19 Amoxicillin* (Amoxicillin*) 500 Mg Cap, 500 MG PO Q8 for 7 Days, #21 CAP Prov:JUAQUIN CHOI [employer] OWNER OPERATOR 01/20/19 Levofloxacin* (Levaquin*) 750 Mg Tablet, 750 MG PO DAILY, #7 TAB Prov:JUAQUIN CHOI [employer] OWNER OPERATOR 01/20/19 Reported Medications Aspirin* (Aspirin* EC) 81 Mg Tablet.dr, 81 MG PO DAILY, TAB 12/01/17 Insulin Regular, Human (Humulin R) 100 Units/Ml Vial, 20 UNIT IM* BID WITH MEALS 07/31/13 Nph, Human Insulin Isophane (Humulin N) 100 Units/Ml Vial, 5 UNITS IM BID INJECT 5 UNITS IN TME MORNING AND 15 UNITS IN THE EVENING 07/31/13 Metformin* (Glucophage*) 1,000 Mg Tablet, 1000 MG PO bid 07/31/13 Simvastatin (Simvastatin) 20 Mg Tablet, 20 MG PO hs 07/31/13 Glimepiride* (Glimepiride*) 4 Mg Tablet, 4 MG PO bid' 07/31/13 Allergies Allergies: Coded Allergies: No Known Allergies (Unverified Allergy, Mild, 02/28/19) PMhx/Soc History of Surgery: No Anesthesia Reaction: No Hx Neurological Disorder: No Hx Respiratory Disorders: No Hx Cardiac Disorders: Yes (HIGH CHOLESTEROL ) Hx Psychiatric Problems: No Hx Miscellaneous Medical Probl: Yes (ANEMIA , DM) Hx Alcohol Use: No Hx Substance Use: No Hx Tobacco Use: No Smoking Status: Never smoker FmHx Family History: diabetes Physical Exam Vitals Vital Signs Date Temp Pulse Resp B/P (MAP) Pulse Ox O2 O2 Flow FiO2 Time Delivery Rate 02/28/19 84 18 106/66 100 Room Air 19:49 (79) 02/28/19 99.6 88 18 134/65 98 19:31 (88) Physical Exam General: Well developed, well nourished, no acute distress Head: Normocephalic, atraumatic. Eyes: Pupils equally reactive, EOM intact ENT: Moist mucous membranes Neck: Supple, no lymphadenopathy Respiratory: Lungs clear bilaterally, no distress Cardiovascular: RRR, no murmurs, rubs, or gallops, reproducible anterior chest wall tenderness along the sternal costal margin bilaterally Abdominal: Soft, non-tender, non-distended, no peritoneal signs : Deferred MSK: No edema, no unilateral swelling, 5/5 strength Neurologic: Alert and oriented, moving all extremities, normal speech, no focal weakness, no cerebellar signs Skin: No rash Psych: Normal mood Result Diagram: 02/28/19200602/28/192037 Results 24 hrs Laboratory Tests Test 02/28/19 20:07 02/28/19 20:38 White Blood Count 5.5 10^3/ul Red Blood Count 3.69 10^6/ul Hemoglobin 10.3 g/dl Hematocrit 31.9 % Mean Corpuscular Volume 86.4 fl Mean Corpuscular Hemoglobin 27.9 pg Mean Corpuscular Hemoglobin Concent 32.3 g/dl Red Cell Distribution Width 20.2 % Platelet Count 285 10^3/UL Mean Platelet Volume 9.4 fl Immature Granulocytes % 0.200 % Neutrophils % 68.7 % Lymphocytes % 17.9 % Monocytes % 7.8 % Eosinophils % 4.7 % Basophils % 0.7 % Nucleated Red Blood Cells % 0.0 /100WBC Immature Granulocytes # 0.010 10^3/ul Neutrophils # 3.8 10^3/ul Lymphocytes # 1.0 10^3/ul Monocytes # 0.4 10^3/ul Eosinophils # 0.3 10^3/ul Basophils # 0.0 10^3/ul Nucleated Red Blood Cells # 0.0 10^3/ul Sodium Level 141 mmol/L Potassium Level 3.7 mmol/L Chloride Level 108 mmol/L Carbon Dioxide Level 23 mmol/L Anion Gap 10 Blood Urea Nitrogen 11 mg/dl Creatinine 0.53 mg/dl Est Glomerular Filtrat Rate mL/min > 60 mL/min Glucose Level 152 mg/dl Calcium Level 9.2 mg/dl Troponin I < 0.012 ng/ml Current Medications Medications Dose Sig/Darrick Start Time Status Last (Trade) Ordered Route PRN Stop Time Admin Dose Reason Admin Morphine 4 mg ONCE STAT 02/28/19 DC 02/28/19 Sulfate IV 19:59 20:13 (morphine) 02/28/19 20:01 Ondansetron 4 mg ONCE STAT 02/28/19 DC 02/28/19 HCl (Zofran IV 19:59 20:12 Inj) 02/28/19 20:01 Procedures/MDM EKG, MONITORS, & DIAGNOSTIC IMAGING: EKG: I reviewed and interpreted a 12-lead EKG. Rhythm: Normal sinus rhythm ST Changes: No contiguous ST segment elevations T waves: No contiguous T wave inversions Impression: No evidence of acute cardiac ischemia Chest x-ray: I reviewed and interpreted a 1 view of the chest Mediastinum: No enlargement Cardiac silhouette: No cardiomegaly Airspace: Clear lung sams bilaterally without evidence of pneumothorax Bones: No evidence of fracture LAB INTERPRETATION: I reviewed the laboratory testing and it shows negative troponin MEDICAL DECISION MAKING: The patient presents with a stocking and glove distribution of paresthesia and pain likely consistent with diabetic neuropathy. Initiation of gabapentin on an outpatient basis would be reasonable. The patient exhibits no signs or symptoms concerning for stroke or vascular process. She is otherwise neurologically intact and vascularly intact. Her chest pain is very consistent with musculoskeletal etiology. It is extremely reproducible and likely secondary to cough. Screening for pneumonia would be appropriate. Very low pretest probability for cardiac etiology though EKG and troponin would be appropriate. ER COURSE: * Patient was given pain medication with improved symptomatology. Laboratory testing is reassuring without evidence of cardiac ischemia. * At this point initiation of gabapentin would be reasonable. Primary care follow-up recommended. CONSULTATION: None DISPOSITION PLAN: The patient does not have an identifiable emergent medical condition that warrants inpatient hospitalization at this time. The patient is deemed safe for discharge with outpatient follow-up. We discussed follow up with the patient's primary care doctor within 24 to 48 hours as needed. We also discussed return to the emergency room for worsening symptoms or worsening condition. Outpatient referral: None required Discharge Medications: Gabapentin, [place], Zofran NARCOTIC MEDICATION: The patient has been prescribed a narcotic medication during this encounter. The patient has been warned about the use of narcotics. The patient should not drive or operate heavy machinery while taking this medication. The patient was also warned about the addictive properties of narcotic medications. Narcan prescription was NOT provided given the following criteria: 1. No more than 5 tablets of [place] 10 mg or 10 tablets of [place] 5 mg were prescribed. 2. Concomitant opiate and benzodiazepine prescriptions were not provided. 3. There is no obvious evidence of prior history of opiate abuse or overdose. Departure Diagnosis: Primary Impression: Diabetic peripheral neuropathy Additional Impression: Chest wall pain Condition: Stable VICENTE HOLLIS MD Feb 28, 2019 21:11
[2019-02-28] MEDS ORDERED: GABA100C14 PO (21:57)
[2019-02-28] MEDS ORDERED: HYDR-4011 PO (21:57)
[2019-02-28] MEDS ORDERED: ONDA4TAB14 PO (21:57)
[2019-02-28 22:12] VITALS: BP 110/61; PULSE 96; RESP 18
== END 2019-02-28 22:12 | disposition home or self-care (01) ==
LOC: E/R 19:13
DX: E11.21 Type 2 diabetes mellitus with diabetic nephropathy (principal); R07.89 Other chest pain; Z79.4 Long term (current) use of insulin; Z79.82 Long term (current) use of aspirin
CPT/HCPCS: 36415; 71045; 80048; 84484; 85025; 93005; 96374; 96375; J2270; J2405; Z7502

== ENCOUNTER 2019-03-01 20:37 | Emergency (ER) | payer OTHER ==
[~2019-03-01] VITALS: Wt 89.3 kg
[~2019-03-01 20:37] MED LIST changes: +GABA100C14 PO; +HYDR-4011 PO; +ONDA4TAB14 PO
[2019-03-01] MEDS ORDERED: KETOROLAC 15 MG INJ IV STA (23:48)
[2019-03-02] MEDS ORDERED: DIAZEPAM 2 MG TAB PO ONE
--- NOTE | 2019-03-02 00:07 | ERD ---
ER Documentation Chief Complaint Chief Complaint chest pain x 6 days HPI This is a 58-year-old female with a past medical history of hypertension, hyperlipidemia, insulin-dependent diabetes, severe diabetic neuropathy affecting all extremities, chronic anemia, reported previous heart attack 7 years ago treated conservatively now on a baby aspirin daily who is presenting with approximately 6 days of waxing and waning midsternal nonradiating moderate aching chest pain. The patient is very anxious in the room and endorses feeling palpitations. She reports shortness of breath as well. She denies any diaphoresis. She has not had any lightheadedness or dizziness. She denies any nausea or vomiting. The patient does report a cough ongoing for the last several days. She reports that the cough is been nonproductive, but her pain is worse while coughing. The patient denies fever or chills. The patient has had no headache or vision changes. The patient does not endorse neck or back pain. The patient denies abdominal pain. The patient denies changes to bowel movements or urination. The patient has had no focal deficits. The patient has had no weakness or numbness or tingling to the face or extremities. ROS All systems reviewed and are negative except as per history of present illness. Medications Home Meds Active Scripts Ondansetron (Ondansetron Odt) 4 Mg Tab.rapdis, 4 MG PO Q6H PRN for NAUSEA AND/OR VOMITING, #10 TAB Prov:VICENTE HOLLIS MD 02/28/19 Hydrocodone/Acetaminophen ([place] 5-325 Tablet) 1 Each Tablet, 1 TAB PO Q6H PRN for PAIN, #7 TAB Prov:VICENTE HOLLIS MD 02/28/19 Gabapentin* (Gabapentin*) 100 Mg Capsule, 100 MG PO TID, #90 CAP Prov:VICENTE HOLLIS MD 02/28/19 Amoxicillin* (Amoxicillin*) 500 Mg Cap, 500 MG PO Q8 for 7 Days, #21 CAP Prov:JUAQUIN CHOI DATA BASE ADMINISTRATOR 01/20/19 Levofloxacin* (Levaquin*) 750 Mg Tablet, 750 MG PO DAILY, #7 TAB Prov:JUAQUIN CHOI NP 01/20/19 Reported Medications Aspirin* (Aspirin* EC) 81 Mg Tablet., 81 MG PO DAILY, TAB 1/19/18 Insulin Regular, Human (Humulin R) 100 Units/Ml Vial, 20 UNIT IM* BID WITH MEALS 07/31/13 Nph, Human Insulin Isophane (Humulin N) 100 Units/Ml Vial, 5 UNITS IM BID INJECT 5 UNITS IN TME MORNING AND 15 UNITS IN THE EVENING 07/31/13 Metformin* (Glucophage*) 1,000 Mg Tablet, 1000 MG PO bid 07/31/13 Simvastatin (Simvastatin) 20 Mg Tablet, 20 MG PO hs 07/31/13 Glimepiride* (Glimepiride*) 4 Mg Tablet, 4 MG PO bid' 07/31/13 Allergies Allergies: Coded Allergies: No Known Allergies (Unverified Allergy, Mild, 02/28/19) PMhx/Soc History of Surgery: No Anesthesia Reaction: No Hx Neurological Disorder: Yes (Diabetic neuropathy) Hx Respiratory Disorders: No Hx Cardiac Disorders: Yes (Hypertension, hyperlipidemia, diabetes) Hx Psychiatric Problems: No Hx Miscellaneous Medical Probl: Yes (Anemia) Hx Alcohol Use: No Hx Substance Use: No Hx Tobacco Use: No Smoking Status: Never smoker FmHx Family History: diabetes Physical Exam Vitals Vital Signs Date Temp Pulse Resp B/P (MAP) Pulse Ox O2 O2 Flow FiO2 Time Delivery Rate 03/01/19 99.1 96 20 139/86 98 Room Air 23:02 (103) 03/01/19 Nasal 23:02 Cannula 03/01/19 99.1 105 20 153/80 98 20:59 (104) Physical Exam Const: No apparent distress, well-developed, well-nourished Head: Normocephalic, Atraumatic Eyes: Normal Conjunctiva. Extraocular movements intact. ENT: Normal External Ears, Nose and Mouth. Neck: Full range of motion. No meningismus. Resp: Clear to auscultation bilaterally, No wheezes, rales or rhonchi Cardio: Regular rate and rhythm. No murmurs, rubs or gallops Abd: Soft, non tender, non distended. Normal bowel sounds Skin: No petechiae or rashes Back: No midline tenderness. No CVA tenderness Ext: No cyanosis. Bilateral lower extremity nonpitting edema. Tenderness to palpation of all extremities. Neur: Awake and alert, oriented 4. Cranial nerves intact. No facial droop. Normal strength, sensation and coordination. Psych: Anxious and tearful in the room Result Diagram: 03/01/19 2300 Results 24 hrs Laboratory Tests Test 03/01/19 23:00 White Blood Count 6.4 10^3/ul Red Blood Count 3.89 10^6/ul Hemoglobin 10.9 g/dl Hematocrit 33.4 % Mean Corpuscular Volume 85.9 fl Mean Corpuscular Hemoglobin 28.0 pg Mean Corpuscular Hemoglobin Concent 32.6 g/dl Red Cell Distribution Width 19.7 % Platelet Count 298 10^3/UL Mean Platelet Volume 8.6 fl Immature Granulocytes % 0.300 % Neutrophils % 74.1 % Lymphocytes % 14.1 % Monocytes % 7.9 % Eosinophils % 3.3 % Basophils % 0.3 % Nucleated Red Blood Cells % 0.0 /100WBC Immature Granulocytes # 0.020 10^3/ul Neutrophils # 4.8 10^3/ul Lymphocytes # 0.9 10^3/ul Monocytes # 0.5 10^3/ul Eosinophils # 0.2 10^3/ul Basophils # 0.0 10^3/ul Nucleated Red Blood Cells # 0.0 10^3/ul Procedures/MDM MDM The patient's presentation warrants further investigation. Previous medical rec ords, if available, were reviewed. LABS The patient's laboratory testing was obtained and reviewed. No emergent treatment was required unless described below. CBC: No E/o systemic infection or severe anemia or thrombocytopenia. Mild normocytic anemia, not emergent. Chemistry: No E/o severe acidosis or alkalosis or renal failure or diabetic ketoacidosis Troponin: No E/o acute ischemia BNP: No E/o heart failure EKG EKG read by me: Rate/Rhythm: Sinus tachycardia at 111 bpm Intervals: Normal [place]: Normal Impression: No evidence of acute ischemia. Sinus tachycardia. IMAGING Imaging and Radiology interpretation reviewed. CXR 1V Interpreted by me Soft Tissue: No acute abnormalities Bones: No acute abnormalities Mediastinum/Cardiac Silhouette: Unremarkable. No widened mediastinum. Lungs: No acute abnormalities. Normal pulmonary vasculature. No pneumothorax. No pulmonary edema. Clear costal diaphragmatic angles. No pleural effusions. No opacity or consolidations concerning for pneumonia. TREATMENT/DISPOSITION The patient presents for chest and full body pains. The patient is very anxious in the room. Anxiety is certainly a possibility. The patient's chronic diabet ic neuropathic pains also appear to be exacerbating her symptoms. The patient also endorses a cough over the last several days. Costochondritis or an alternative musculoskeletal etiology are certainly possibilities. That said, these are diagnoses of exclusion. A full cardiac workup was completed. The patient's chest xray does not reveal pneumonia or pneumothorax or pleural effusions or pulmonary edema. The patient does not have a widened mediastinum and does not have signs or symptoms concerning for thoracic aortic aneurysm or dissection. The patient does not have pneumomediastinum or signs concerning for esophageal tear or rupture. The patient has no clinical or radiographic signs of pericardial effusion or tamponade. The patient does not have pneumoperitoneum and I have decreased suspicion of viscus perforation as possible referred pain. The patient does not have a history of heart failure and I have low suspicion for this. The patient does not have a diagnosis of COPD and is not wheezing today. The patient is not tachypneic or hypoxic. The patient is breathing comfortably and without pleuritic pain. The patient is not on hormonal therapy. The patient has no history of clotting or bleeding disorders. The patient has no calf tenderness. The patient has had no hemoptysis. I have decreased suspicion for PE. The patient's troponin and EKG are reassuring. I have low suspicion for acute coronary syndrome. The patient has a troponin yesterday which was likewise negative. The patient's HEART score is equal to or less than 3. This stratifies the patient into the low risk (<1%) group for an major adverse cardiac event within the next 30 days. Shared decision making was enacted. The risks and benefits of admission and discharge were discussed with the patient and it was ultimately decided that the patient would be discharged with close outpatient follow up and evaluation for functional testing within 72 hours. : The patient was treated with Toradol and a dose of Valium. DISCHARGE Upon reevaluation of the patient, symptoms have improved. No emergent diagnoses were identified. At this time, I feel that the patient stable for discharge. The patient was instructed to follow-up with a primary care physician in 1-3 days. The patient will be given strict precautions with which to return to the emergency department. Prescriptions: None. Patient received Zofran, [place] and gabapentin yesterday. Patient will need to fill these prescriptions and take as prescribed. The patient's blood pressure was elevated at greater than 120/80 while in the emergency department. The patient was otherwise stable with no evidence of hypertensive urgency or emergency. The patient does not require admission for blood pressure control. I have discussed with the patient the risks of hypertension. I have instructed the patient to return to the ER for any new or worsening symptoms including chest pain, shortness of breath, headache, blurred vision, confusion, nausea, vomiting or LOC. I have advised the patient to follow up with the primary care physician for outpatient monitoring and treatment for hypertension in 1-3 days. Disclaimer: Inadvertent spelling and grammatical errors are likely due to EHR/dictation software use and do not reflect on the overall quality of patient care. Note that the electronic time recorded on this note does not necessarily reflect the actual time of the patient encounter. Departure Diagnosis: Primary Impression: Nonspecific chest pain Additional Impressions: Anxiousness Tachycardia Chronic painful diabetic neuropathy Normocytic anemia Condition: Stable Patient Instructions: Anxiety Reaction, Chest Pain, Uncertain Cause, Neuropathy, Peripheral Additional Instructions: Thank you for for coming to [facility] for your care today. Please ask your nurse or provider if you have questions about your care today and do not leave until all your questions have been answered. Please use any medications given as directed and follow-up with your doctor (or the doctor you were referred to) in the next 1-3 days. If you do not have a primary care doctor you may follow up at the [facility] or [facility] (listed below). You may also use motrin and tylenol as needed for fever and/or pain unless instructed otherwise by your provider or nurse. Indications for more urgent follow-up have been discussed, but you may return to the Emergency Department at ANY time for any worrisome or worsening symptoms. If you have abdominal pain, please know that no test or exam you received is perfect and you should follow up within 8 hours for continued pain. If you had any imaging studies today, such as an X-Ray or CT Scan, these studies will be reviewed later by a radiologist. You will be called if there are important findings that were not identified today, so make sure the contact information you provided at registration is correct. If you received any narcotic pain control medicine today, such as Vicodin, Morphine or Dilaudid, your coordination and judgment may be affected for a number of hours. Please do not drive or operate heavy machinery, and you may want someone to assist you at home. If you were given a prescription for narcotic medication, be aware that it is very addictive- use sparingly and only if necessary. PLEASE SEEK FURTHER EVALUATION AND MANAGEMENT AT YOUR DOCTORS OFFICE WITHIN THE NEXT 1-3 DAYS. IT IS YOUR RESPONSIBILITY TO MAKE AN APPOINTMENT FOR FOLOW-UP CARE. IF YOU HAVE A PRIMARY DOCTOR, PLEASE CALL THEIR OFFICE TO SCHEDULE AN APPOINTMENT FOR FOLLOW UP. IF YOU DO NOT HAVE A PRIMARY DOCTOR YOU CAN CALL OUR PHYSICIAN REFERRAL HOTLINE AT IF YOU CAN NOT AFFORD TO SEE A PHYSICIAN YOU CAN CHOSE FROM THE FOLLOWING [facility] CL[facility]ICS: [facility] [address] [facility] [address] [facility] [address] [facility] [facility] [address] [address]. [facility] [address] [facility]. [facility]. [address] HELEN SINGH MD Mar 01, 2019 23:33
[2019-03-02] MEDS ORDERED: DIAZEPAM 5 MG/ML SYG IV ONE (00:30)
[2019-03-02 01:56] VITALS: BP 141/82; PULSE 72; RESP 20
== END 2019-03-02 01:57 | disposition home or self-care (01) ==
LOC: E/R 20:37
DX: R07.2 Precordial pain (principal); F41.9 Anxiety disorder, unspecified; R00.2 Palpitations; D64.9 Anemia, unspecified; E11.40 Type 2 diabetes mellitus with diabetic neuropathy, unspecified; I10 Essential (primary) hypertension; Z79.4 Long term (current) use of insulin; Z79.82 Long term (current) use of aspirin
CPT/HCPCS: 36415; 71045; 80048; 83880; 84484; 85025; 93005; 96374; 96375; J1885; J3360; Z7502; Z7610

== ENCOUNTER 2019-06-08 12:21 | Emergency (ER) | payer OTHER ==
[~2019-06-08] VITALS: Ht 160 cm; Wt 82.1 kg
[2019-06-08 12:30] VITALS: BP 130/74; PULSE 118; RESP 20; Ht 160 cm; Wt 82.1 kg
[2019-06-08] MEDS ORDERED: HYDROCODONE/APAP (5/325) TAB PO ONE (13:30)
--- NOTE | 2019-06-08 13:31 | ERD ---
ER Documentation Chief Complaint Chief Complaint joint pain x 1 month HPI Patient is a 58-year-old female, past medical history of hypertension, hyperlipidemia, DM type II, insulin-dependent, diabetic neuropathy, rheumatoid arthritis, presents to the ER for concerns of bilateral wrist pain, knee pain and ankle pain for the last month and a half. Patient shows me a bottle states she is been taking her methotrexate for her pain. Patient states she does not have any other pain medication. Patient denies any fevers or chills. Patient denies any falls or trauma. Patient denies any chest pain, shortness breath, nausea, vomiting, left upper extremity pain, diaphoresis or loss of consciousness. ROS All systems reviewed and are negative except as per history of present illness. Medications Home Meds Active Scripts Gabapentin* (Gabapentin*) 100 Mg Capsule, 100 MG PO TID, #45 CAP Prov:DANNY HERRERA PA-C 06/08/19 Ondansetron (Ondansetron Odt) 4 Mg Tab.rapdis, 4 MG PO Q6H PRN for NAUSEA AND/OR VOMITING, #10 TAB Prov:VICENTE HOLLIS MD 02/28/19 Hydrocodone/Acetaminophen ([place] 5-325 Tablet) 1 Each Tablet, 1 TAB PO Q6H PRN for PAIN, #7 TAB Prov:VICENTE HOLLIS MD 02/28/19 Gabapentin* (Gabapentin*) 100 Mg Capsule, 100 MG PO TID, #90 CAP Prov:VICENTE HOLLIS MD 02/28/19 Amoxicillin* (Amoxicillin*) 500 Mg Cap, 500 MG PO Q8 for 7 Days, #21 CAP Prov:JUAQUIN CHOI [employer] 01/20/19 Levofloxacin* (Levaquin*) 750 Mg Tablet, 750 MG PO DAILY, #7 TAB Prov:JUAQUIN CHOI [employer] 01/20/19 Reported Medications Aspirin* (Aspirin* EC) 81 Mg Tablet.dr, 81 MG PO DAILY, TAB 12/01/17 Insulin Regular, Human (Humulin R) 100 Units/Ml Vial, 20 UNIT IM* BID WITH MEALS 07/31/13 Nph, Human Insulin Isophane (Humulin N) 100 Units/Ml Vial, 5 UNITS IM BID INJECT 5 UNITS IN TME MORNING AND 15 UNITS IN THE EVENING 07/31/13 Metformin* (Glucophage*) 1,000 Mg Tablet, 1000 MG PO bid 07/31/13 Simvastatin (Simvastatin) 20 Mg Tablet, 20 MG PO hs 07/31/13 Glimepiride* (Glimepiride*) 4 Mg Tablet, 4 MG PO bid' 07/31/13 Allergies Allergies: Coded Allergies: No Known Allergies (Unverified Allergy, Mild, 02/28/19) PMhx/Soc History of Surgery: No Anesthesia Reaction: No Hx Neurological Disorder: Yes (Diabetic neuropathy) Hx Respiratory Disorders: No Hx Cardiac Disorders: Yes (Hypertension, hyperlipidemia) Hx Psychiatric Problems: No Hx Miscellaneous Medical Probl: Yes (Anemia) Hx Alcohol Use: No Hx Substance Use: No Hx Tobacco Use: No Smoking Status: Never smoker FmHx Family History: diabetes Physical Exam Vitals Vital Signs Date Temp Pulse Resp B/P (MAP) Pulse Ox O2 O2 Flow FiO2 Time Delivery Rate 06/08/19 99.7 118 20 130/74 98 12:30 (92) Physical Exam GENERAL: Well-developed, well-nourished female. Appears in no acute distress. HEAD: Normocephalic, atraumatic. EYES: Pupils are equally reactive bilaterally. EOMs grossly intact. No conjunctival erythema. ENT: Moist mucous membranes. No uvula deviation. No kissing tonsils. NECK: Supple. No meningismus. Normal range of motion of the neck. LUNG: Clear to auscultation bilaterally. No rhonchi, wheezing, rales or coarse breath sounds. HEART: Regular rate and rhythm. No murmurs, rubs or gallops. EXTREMITIES: Equal pulses bilaterally. No peripheral clubbing, cyanosis or edema. No unilateral leg swelling. Tender to palpation of bilateral wrist joints. Tender to palpation of bilateral knee joints. Normal pulses in all extremities. NEUROLOGIC: Alert and oriented. Moving all four extremities without any difficul ty. Normal speech. SKIN: Normal color. Warm and dry. No rashes or lesions. Results 24 hrs Current Medications Medications Dose Sig/Darrick Start Time Status Last (Trade) Ordered Route PRN Stop Time Admin Dose Reason Admin 1 tab ONCE ONCE 06/08/19 Acetaminophen PO 13:30 / 06/08/19 13:31 Hydrocodone Bitart ([place] (5/325)) Procedures/MDM MEDICAL DECISION MAKING: Patient is a 58 year old male with PMHx of hypertension, hyperlipidemia, DM, insulin-dependent, RA, diabetic neuropathy, presents the ER for concerns of bilateral wrist pain, knee pain and ankle pain for the last month and a half.. Vital signs were reviewed. Patient is afebrile. Patient was not hypoxic. Patient was hemodynamically stable. Patient states she is ran out of her pain medicine. Patient has a history of taking gabapentin as well as [place] for pain. Patient will be given refill of her gabapentin. Patient advised to follow-up with her primary care physician for any additional refills of pain medication. Low suspicion for fracture, dislocation, compartment syndrome. Patient denies any chest pain, shortness of breath, nausea, vomiting or LOC .Low suspicion for PE. PRESCRIPTION: Gabapentin DISCHARGE: At this time, patient is stable for discharge and outpatient management. I have instructed the patient to follow-up with his/her primary care physician in 1-2 days. I have discussed with the patient the possibility of needing to see a specialist for further workup and imaging studies if symptoms persist. I have instructed the patient to promptly return to the ER for any new or worsening symptoms including increased pain, fever, nausea, vomiting, weakness or LOC. The patient and/or family expressed understanding of and agreement with this plan. All questions were answered. Home care instructions were provided. Disclaimer: Inadvertent spelling and grammatical errors are likely due to EHR/dictation software use and do not reflect on the overall quality of patient care. Also, please note that the electronic time recorded on this note does not necessarily reflect the actual time of the patient encounter. Departure Diagnosis: Primary Impression: Joint pain Joint pain location: unspecified Qualified Codes: M25.50 - Pain in unspecified joint Additional Impressions: RA (rheumatoid arthritis) Rheumatoid arthritis location: unspecified site Rheumatoid factor presence: unspecified presence Qualified Codes: M06.9 - Rheumatoid arthritis, unspecified Diabetic neuropathy Diabetes mellitus type: type 1 Diabetes mellitus complication detail: with other neurological complication Qualified Codes: E10.49 - Type 1 diabetes mellitus with other diabetic neurological complication Condition: Fair Patient Instructions: What Is Rheumatoid Arthritis? Additional Instructions: Llame al doctor MAANA y elmira ana LENO PARA DENTRO DE 1-2 WYATT.Dgale a la secretaria que nosotros le instruimos hacer esta leno.Avise o llame si mcclendon condicin se empeora antes de la leno. Regresa aqui si peor o no mejor. DANNY HERRERA PA-C Jun 08, 2019 13:31
== END 2019-06-08 13:49 | disposition home or self-care (01) ==
LOC: FTE 12:21
DX: M06.9 Rheumatoid arthritis, unspecified (principal); I10 Essential (primary) hypertension; E10.49 Type 1 diabetes mellitus with other diabetic neurological complication; Z79.4 Long term (current) use of insulin; Z79.82 Long term (current) use of aspirin
CPT/HCPCS: Z7502; Z7610; 99283